=== PATIENT | male | born 1960 | race Caucasian/White ===

== ENCOUNTER → 2024-02-04 08:10 | Outpatient (REF) | payer OTHER, SELFPAY | LOC: MRI 3T 08:10 | PROVIDERS: ATTENDING PHYSICIAN Physician Assistant Surgical; FAMILY PHYSICIAN Family Medicine | DX: M25.562 Pain in left knee (principal) | CPT/HCPCS: 73721 ==

== ENCOUNTER 2024-10-27 10:16 | Inpatient (IN) | payer OTHER, SELFPAY ==
[2024-10-27] VITALS (9 sets, daily range): BP systolic 106–139; BP diastolic 59–83; BMI 27.8
--- NOTE | 2024-10-27 08:42 | ED.GENMED ---
History of Present Illness
General
Chief Complaint: Skin Problem
Source: patient
Time Seen by Provider: 10/27/24 08:11
History of Present Illness
History of Present Illness:
64-year-old male with past medical history of CAD, hypertension, hyperlipidemia, ubc-gzahzap-mfmdhmgyu diabetes managed with diet presenting to the emergency department for evaluation of left lower extremity pain, erythema and edema that he believes
started about 48 hours ago and has gotten gradually worse accompanied with chills, nausea, 1 episode nonbloody nonbilious emesis and a headache. Patient states that he is not sure as to how the redness and swelling started but states this does seem
similar to an episode of cellulitis that he had about 4 5 years ago which required treatment with IV antibiotics. Patient denies any trauma, focal weakness or numbness, documented fevers, abdominal pain, chest pain or shortness of breath. No
recent travel or known sick contacts.
Past History
Past History
ED Past Medical History: CAD, GERD, HTN, Hypercholesterolemia, NIDDM (Diet controlled) and Other (Cellulitis)
ED Past Surgical History: Cardiac (Cardiac catheterization 06/19/2019, no stents, CABG x 3 2018)
Social History
Tobacco: Non-smoker
Alcohol: Occasional
Drug: None
Personal: Other ()
Living: alone
Employment: Employed
Family History
Family History: CAD
Review of Systems
Review of Systems
All Other Systems: ROS reviewed and negative except as documented in HPI and ROS
Phy Exam
Physical Exam
Physical Exam:
GENERAL: Alert , in no apparent distress
HEAD: NCAT
EYE: conjunctiva clear
NECK: Supple, no significant adenopathy.
ENT: o/p clr, mmm.
CARDIAC: Tachycardic rate and rhythm
LUNGS: Clear breath sounds bilaterally, no acute respiratory distress, no wheezes/rales/rhonchi
NEUROLOGICAL: Alert and oriented
SKIN: Warm and dry, circumferential erythema extending from the distal ankle to the proximal tib-fib. Hot to the touch, tender to touch. Along the medial aspect of the mid tibia there is a deeper area of erythema compared to the rest of the lower
leg
MUSCULOSKELETAL: Easily palpable pedal and tibial pulses bilaterally. Sensation grossly intact to light touch. Cap refill less than 2 seconds. Patient allows for full range of motion of bilateral lower extremities without difficulty
PSYCH: Normal and appropriate interaction.
Scores
Heart Failure Risk
Heart Failure Risk Score: Not Applicable
Heart Score for Chest Pain Patients
STEMI patient?: Not applicable
Withdrawal Assessment of Alcohol
Withdrawal Assessment Completed?: Not applicable
Course
Orders/Labs/Results
Orders:
Orders
10/27/24 Breakfast
2200 calorie (18 carb) Diabetic
At Your Request: Full Participation
10/27/24 08:25
Ketorolac [Toradol] 30 mg IV NOW STA
Periph Venous Lwr Ext Left US [US Periph Venous LOWER Ext LT] Urgent
Comment:
Reason For Exam: pain, erythema, edema
10/27/24 08:35
Basic Metabolic Panel Urgent
CRP [C-Reactive Protein] Urgent
Complete Blood Count/With Diff Urgent
ESR [Erythrocyte Sed Rate] Urgent
Lactic Acid Q4H
Comment: CANCEL 2nd LACTIC ACID IF 1st LACTIC ACID IS LESS THAN 2
Blood Culture Q30M
JARROD Source: Blood/Venous
Specimen Description:
Blood Culture Q30M
JARROD Source: Blood/Venous
Specimen Description:
10/27/24 08:52
0.9% Sodium Chloride 1000 ml [Nss] 2,400 ml IV NOW STA
Acetaminophen [Tylenol] 1,000 mg PO NOW STA
Vancomycin [Vancocin] 2,000 mg 0.9% Sodium Chloride 500 ml [Nss] 500 ml IV NOW
10/27/24 09:56
Admit/Transfer Patient As Directed
Co-Sign Provider:
Level of Care: Inpatient admission
Assign to:: Medical/Surgical
Physician / Group: Hospitalist
Diagnosis: Sepsis
Reason for Hospitalization: .
Expected length of stay greater than two midnights?: Yes
ELOS- Estimated Length of Stay in days: 3
I certify the patient meets the requirements for IP care: Yes
PRN Pain Medication Management As Directed
May give lesser potent ordered pain med per pt: Yes
preference::
Protocol:: Medication orders for pain may be administered in a
manner that supports deferring to patient preference
when the pt is:
- Requesting an ordered lesser potent pain medication.
Least to most potent pain medications are defined
as: acetaminophen < NSAID < tramadol < opioids
(morphine, oxycodone, hydromorphone).
- Requesting a lesser dose of the same medication IF
ORDERED.
- Requesting a less intrusive route of administration
if both routes are prescribed by the provider (PO <
IV).
10/27/24 13:23
0.9% Sodium Chloride 1000 ml [Nss] 1,000 ml IV 125 mls/hr
Acetaminophen [Tylenol] 1,000 mg PO Q6HPRN PRN
Dextrose 50%-Water [Dextrose 50% Syringe] 12.5 grams IV [id number] PRN
Glucagon [GlucaGen] 1 mg IM PRN PRN
HydrALAZINE [Apresoline] 5 mg PO QIDPRN PRN
Insulin Aspart Corrective Mod [Novolog Flexpen-Moderate Resistance] See Protocol SC AC
Morphine Sulfate 4 mg IV Q4HPRN PRN
Ondansetron Injectable [Zofran] 4 mg IV Q6HPRN PRN
VANCOMYCIN Pharmacy to Dose [VANCOCIN Pharmacy to Dose] 1 each Pharmacy To Prepare [Call Pharmacy To Prepare] 0 ml IV PER PROTOCOL
10/27/24 13:23
Consult Infectious Disease [INFECTIOUS DISEASE CONSULT] Routine
Consulting Provider: Lisa Clark
Was physician already notified: Yes
Reason for consult: Sepsis/cellulitis
Bedside Glucose Monitoring As Directed
Frequency: AC&HS
Additional Instructions:: Change to q6h if pt on TPN, tube feeding or not eating
DX Deep Vein Thrombosis Video Routine
10/27/24 20:00
Carvedilol [Coreg] 6.25 mg PO BID
Heparin 5,000 units SC Q12
10/28/24 06:00
BMP [Basic Metabolic Panel] IN AM
CBC/No Diff [Complete Blood Count/No Diff] IN AM
Glycohemoglobin (HgbA1c) IN AM
10/28/24 08:00
Aspirin Low Dose EC [Aspir Low (Enteric Coated)] 81 mg PO DAILY
Atorvastatin [Lipitor] 80 mg PO DAILY
Abnormal Lab Results
10/27/24
08:35
WBC 16.7 H 10^3/uL
(4.8-10.8)
MCV 78.6 L fL
(80.0-94.0)
MCH 26.0 L pg
(27.0-31.0)
Abs Immat Gran (auto) 0.2 H 10^3/uL
(0-0.05)
Absolute Neuts (auto) 15.0 H 10^3/uL
(1.4-6.5)
Absolute Lymphs (auto) 0.9 L 10^3/uL
(1.2-3.4)
Immature Gran % 1.1 H %
(0-0.5)
Neutrophils % 90.2 H %
(42.2-75.2)
Lymphocytes % 5.2 L %
(20.5-51.1)
ESR 30 H mm/hour
(0-20)
Sodium 134 L mmol/L
(135-145)
Chloride 97 L mmol/L
(98-107)
BUN 24 H mg/dl
(9-20)
Creatinine 1.6 H mg/dL
(0.7-1.3)
Glucose 163 H mg/dl
(70-99)
C-Reactive Protein > 270.00 H mg/L
(0.0-10.00)
10/27/24 08:35
10/27/24 08:35
Vital Signs
Initial and Last Documented VS:
Initial Vital Signs
Temp Pulse Resp BP Pulse Ox
99.1 F 139 18 120/80 96
10/27/24 08:07 10/27/24 08:07 10/27/24 08:07 10/27/24 08:07 10/27/24 08:07
Last Documented Vital Signs
Temp Pulse Resp BP Pulse Ox
97.7 F 95 16 131/78 97
10/27/24 13:28 10/27/24 13:28 10/27/24 13:28 10/27/24 13:28 10/27/24 13:28
MDM/Problems Addressed
Differential Diagnosis Includes:
Cellulitis, abscess, Lyme rash considered however given circumferential nature as well as the edema I am less suspicious for this, cellulitis/bacteremia, osteomyelitis, necrotizing fasciitis, DVT
MDM/Problems Addressed:
64-year-old male presenting to the emergency department for evaluation of left lower extremity erythema, edema and pain x 48 hours. Patient reporting this feels similar to when he was diagnosed with cellulitis 4 to 5 years ago and required IV
antibiotics for treatment. Patient is afebrile here however does have a significant tachycardia. Noted chills and other systemic symptoms over the last 48 hours as well. Will check labs including blood cultures and lactic acid. Ultrasound
ordered to rule out DVT although I have low suspicion for this. Anticipate initiation of IV antibiotics and admission for further evaluation.
*Pulse Oximetry
Patient hypoxic: no
*Critical Care Note
Total Time (30-74mins, 75-104mins- exclusive of procedures): Not Applicable
Data Reviewed
Review of Other/Old Records Reveals: Records
Source: patient and records
Comment
Comment:
Temp rechecked and now 103.1. Sepsis fluids/abx initiated. tylenol ordered for pyrexia. Plan for admit.
Patient Management
Discussion with other providers: Hospitalist
Escalation/DeEscalation of care consider admission/obs:
Hospitalist team accepts for continued evaluation and treatment of suspected left lower extremity cellulitis
ED Attending Note
-
Portions of this chart may have been created with voice recognition software.� Occasional wrong word or��sound alike� substitutions may have occurred due to the inherent limitations of voice recognition software.
Discharge Plan
Departure
Patient Disposition: Admit
Date of Disposition: 10/27/24
Time of Disposition: 09:26
Presentation/result/management discussed w/ accepting MD/DO: Hospitalist
Discharge Problem:
Cellulitis of left leg, LARRY (acute kidney injury)
Interventions
Interventions:
*Risk Screen - Suicide Last Done: 10/27/24 08:07
*General Assessment Last Done: 10/27/24 08:07
*Neglect/Abuse Screening Last Done: 10/27/24 08:07
ED- Fall Risk Assessment Last Done: 10/27/24 09:08
*ED COVID-19 Vaccine History Last Done: 10/27/24 09:08
*Nursing Disposition Last Done: 10/27/24 13:24
ED-Skin Assessment Last Done: 10/27/24 09:10
Discharge Date and Time
Discharge Date/Time: 10/27/24 13:25
[2024-10-27] MEDS: NSS 2400 ML IV (08:56)
[2024-10-27] MEDS: TYLENOL 1000 MG PO ×2 (09:00→23:28)
[2024-10-27] MEDS: TORADOL 30 MG IV (09:01)
[2024-10-27 09:05] LABS: % Basophils 0.2 % (0-2); % Immature Granulocytes 1.1 % (0-0.5); % Lymphocytes 5.2 % (20.5-51.1); % Monocytes 3.3 % (1.7-9.3); % Neutrophils 90.2 % (42.2-75.2); Absolute Immature Granulocytes 0.2 10^3/uL (0-0.05); Absolute Lymphocytes 0.9 10^3/uL (1.2-3.4); Absolute Monocytes 0.6 10^3/uL (0.1-0.6); Hematocrit 40.5 % (39.0-52.0); Hemoglobin 13.4 g/dL (13.0-18.0); Mean Corp Hgb Conc. 33.1 g/dL (33.0-37.0); Mean Corpuscular Volume 78.6 fL (80.0-94.0); Mean Platelet Volume 9.3 fL (7.4-10.4); Nucleated Red Blood Cells % 0 % (-); Platelet Count 173 10^3/uL (130-400); Red Blood Cell Count 5.15 10^6/uL (4.70-6.10); Red Cell Dist. Width 13.6 % (11.5-14.5); White Blood Cell Count 16.7 10^3/uL (4.8-10.8)
[2024-10-27 09:18] LABS: Lactic Acid 1.3 mmol/L (0.7-2.0)
[2024-10-27 09:23] LABS: Blood Urea Nitrogen 24 mg/dl (9-20); Calcium 8.9 mg/dl (8.4-10.2); Carbon Dioxide 24 mmol/L (22-30); Chloride 97 mmol/L (98-107); Estimated Creatinine Clearance 44 ml/min; Glucose 163 mg/dl (70-99); Potassium 3.8 mmol/L (3.5-5.1); Sodium 134 mmol/L (135-145); eGFR 48.11
[2024-10-27 09:43] LABS: C-Reactive Protein > 270.00 mg/L (0.0-10.00)
--- NOTE | 2024-10-27 09:55 | HPS.HSE ---
Family Physician
-
Family Physician: Marcelino Jackson
Chief Complaint
-
Left lower extremity erythema with fever
History of Present Illness
64-year-old male came from home. He started to notice left lower extremity pain and erythema associated with fever in last 2 days. He took jvso-ryv-nmzenbs medication but did not help. He started to feel unwell and developed nausea with vomiting
x 1. He presented to the ER and was found to have left lower extremity cellulitis. He reported similar episode in the past. He denied left lower leg injury or trauma. 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 In the emergency
room, he had leukocytosis, kidney injury with fever. He was given Tylenol, intravenous Toradol and intravenous vancomycin.
Medical History
Past Medical History
Past Medical History: Reports Other (Coronary artery disease, hypertension, hyperlipidemia, diabetes, gout.)
Past Surgical History: Reports Other (No recent major surgery)
Social History
Tobacco: Non-smoker
Alcohol: Occasional
Drug: None
Personal:
Living: With Family
Employment: Retired
Family History
Family History: CAD
Allergies / Home Medications
Allergies reflects when Allergies were last updated in [facility].
Home Medications with original date entered in [facility]
Allergy/Medication List:
Allergies
Allergy/AdvReac Type Severity Reaction Status Date / Time
Penicillins Allergy swell up Verified 10/27/24 08:49
Home Medications
aspirin 81 mg tablet,delayed release 81 mg PO DAILY #1 tab 06/19/19
carvedilol 6.25 mg tablet 6.25 mg PO BID 08/09/19
ibuprofen 200 mg tablet 400 mg (2 x 200 mg) PO Q6HPRN PRN moderate pain 11/24/19
atorvastatin 40 mg tablet 80 mg PO DAILY 10/13/21
metformin 500 mg tablet,extended release 24 hr 500 mg PO QPM@1700 10/13/21
valsartan 1 tab PO DAILY 10/27/24
Review of Systems
-
History Source: Patient
A 12 point ROS was completed and negative except as noted: Yes
Constitutional: Reports Fever
EENT: Denies Sore Throat
Respiratory: Denies Cough or Trouble Breathing
Cardiac: Denies Chest Pain
Abdomen/GI: Reports Nausea and Vomiting; Denies Abdominal Pain
: Reports Difficulty Voiding; Denies Dysuria
Musculoskeletal: Reports Other (Left lower extremity pain, swelling and erythema)
Skin: Denies Itching
Neurological: Reports Headache
Endocrine: Denies Temp Intolerance
Hematologic/Lymphatic: Denies Bruising
Psych: Denies Panic Disorder
Physical Exam
Vital Signs
Vital Signs
Temp Pulse Resp BP Pulse Ox
103.1 F H 139 18 120/80 96
10/27/24 08:50 10/27/24 08:07 10/27/24 08:07 10/27/24 08:07 10/27/24 08:07
Physical Exam
General: No Apparent Distress and Comfortable
HEENT: Atraumatic and Other (Dry mucous member)
Respiratory: Clear
Cardiac: S1/S2
GI: Soft and Non Tender
Rectal: No Maroon Stools
Genito-urinary: No No costovertebral tender
Musculoskeletal: Other (Left lower extremity tenderness, erythema and mild swelling from knee to ankle area)
Skin: No Rash
Neuro: AO x 3 and Nonfocal/grossly intact
Psych: Calm and Intact Judgment/Insight
Laboratory Results
-
10/27/24 08:35
10/27/24 08:35
Laboratory Results
Lactic Acid 1.3 mmol/L (0.7-2.0) 10/27/24 08:35
Impression/Plan
-
64 years old male presented with left lower extremity cellulitis
#Cellulitis of left lower extremity with sepsis present on admission with tachycardia, leukocytosis, fever
Admit the patient to telemetry
Start the patient on intravenous vancomycin
Blood culture x 2
Doppler ultrasound, no DVT
Tylenol for fever, mild to moderate pain, avoid nonsteroidal anti-inflammatory medication due to kidney insufficiency
IV morphine for severe pain
Intravenous fluid for hydration
Consulted ID, appreciate input
# Sinus tachycardia, reactive due to fever and infection. Continue with carvedilol monitor on telemetry. Patient denied chest pain
# History of coronary artery disease. No chest pain. Continue with aspirin, statin, beta-arsenio. Hold valsartan due to kidney insufficiency
#History of primary hypertension, will continue with carvedilol. Hold losartan due to kidney insufficiency. Add as needed hydralazine. Monitor blood pressure
#Acute kidney injury. Likely secondary to infection and dehydration.
Patient expressed suprapubic discomfort on exam. Will check bladder scan and monitor for retention. Patient reported history of in the frequent difficulty in voiding in the past
Monitor renal function and avoid nephrotoxic including nonsteroidal anti-inflammatory drugs.
Check renal ultrasound.
# Hyponatremia, no confusion. Continue IV fluid and recheck.
# Type 2 diabetes. Hold metformin. Will do insulin sliding scale and Accu-Cheks.
# Hyperlipidemia, continue with atorvastatin
# DVT prophylaxis with subcu heparin
Total time spent to see the patient, examine the patient, review data and lab results, discuss treatment plan with patient and his son, ER doctor, nursing staff around 75 minutes
[2024-10-27] MEDS: VANCOCIN 540 MG IV (09:58)
[2024-10-27 10:22] LABS: Erythrocyte Sed Rate 30 mm/hour (0-20)
[2024-10-27] MEDS: NSS 1000 IV ×2 (13:52→23:26)
--- NOTE | 2024-10-27 13:57 | PHA.VAN.IN ---
Assessment
- Assessment
Renal Function: Appears elevated from baseline
Plan
- Plan
Initial / Loading Dose: 2000mg 10/27
Maintenance Regimen: prn by level
Monitoring: random 10/28 in am
Pharmacokinetics Vancomycin I
- -
Patient Age: 64
Patient Sex: Male
Vancomycin Day #: 1
Indication: Skin And Soft Tissue
Requesting Provider: Dr. Woodard
Pertinent Antimicrobial Allergies:
PCNs=swell up
Height / Weight:
Height 5 ft 7 in
Actual Weight 80.5 kg
IBW in k.1
- Vital Signs / Lab Results
Temp Pulse Resp BP Pulse Ox
97.7 F 95 16 131/78 97
10/27/24 13:28 10/27/24 13:28 10/27/24 13:28 10/27/24 13:28 10/27/24 13:28
Lab Results - Hematology
10/27/24
08:35
WBC 16.7 H
Lab Results - Chemistry
10/27/24
08:35
BUN 24 H
Creatinine 1.6 H
Estimated Creat Clear 44
10/27/24 10/27/24
08:35 12:30
Lactic Acid 1.3 Cancelled
--- NOTE | 2024-10-27 14:48 | CM ---
Reviewed the chart notes and spoke with the patient at the bedside. The patient resides with his spouse in a two story home with one step to enter. The patient reports no DME/VN/SNF in the patient. The patient confirmed his pharmacy of choice is
[facility] continues to be available to patient/family and is monitoring medical plan for needs at discharge.
Plan: Discharge to home when medically stable.
[2024-10-27 17:01] LABS: Glucose - Point of Care 99 mg/dl (70-99)
[2024-10-27] MEDS: COREG 6.25 MG PO (20:30)
[2024-10-27] MEDS: HEPARIN SC (20:36)
[2024-10-27 21:42] LABS: Glucose - Point of Care 157 mg/dl (70-99)
[2024-10-27] MEDS: ZOFRAN 4 MG IV (23:29)
[2024-10-28 05:57] VITALS: BMI 29.3
[2024-10-28 07:00] LABS: Vancomycin Random 8.9 ug/ml
[2024-10-28 07:04] LABS: Blood Urea Nitrogen 18 mg/dl (9-20); Calcium 7.9 mg/dl (8.4-10.2); Carbon Dioxide 21 mmol/L (22-30); Chloride 102 mmol/L (98-107); Estimated Creatinine Clearance 52 ml/min; Glucose 123 mg/dl (70-99); Potassium 3.8 mmol/L (3.5-5.1); Sodium 139 mmol/L (135-145); eGFR > 60.00
[2024-10-28] MEDS: NSS 1000 IV ×2 (07:28→17:31)
[2024-10-28 07:48] LABS: Glucose - Point of Care 119 mg/dl (70-99)
--- NOTE | 2024-10-28 08:10 | PHA.VAN.FU ---
Vancomycin Assessment / Plan
- Assessment
Renal Function: SCR Decreasing
WBC's are: Trending Down
- Assessment - Therapeutic Drug Monitoring
Random Level: 8.9 - drawn ~20H after 2g loading dose
- Dosing Plan
Dosing by Level: Re-dose today (Vanc 1250mg)
- Monitoring Plan
Random Level: 10/29 0600
- Follow Up
Pharmacy will continue to follow.
Vancomycin Follow UP
- -
Patient Age: 64
Patient Sex: Male
Vancomycin Day #: 2
Indication: Skin And Soft Tissue
Requesting Provider: Dr. Woodard
Pertinent Antimicrobial Allergies:
Penicillins - swell up
Height / Weight:
Height 5 ft 6 in
Actual Weight 82.372 kg
IBW in k.1
Pertinent Past Medical History: DM
- Vital Signs / Lab Results
Temp Pulse Resp BP Pulse Ox
99.6 F 104 18 139/75 96
10/27/24 23:32 10/27/24 23:32 10/27/24 23:32 10/27/24 23:32 10/27/24 23:32
Lab Results - Hematology
10/27/24 10/28/24
08:35 05:54
WBC 16.7 H 14.3 H
Lab Results - Chemistry
10/27/24 10/28/24
08:35 05:54
BUN 24 H 18
Creatinine 1.6 H 1.3
Estimated Creat Clear 44 52
10/27/24 10/27/24
08:35 12:30
Lactic Acid 1.3 Cancelled
Therapeutic Drug Monitoring
Random Vancomycin 8.9 ug/ml 10/28/24 05:54
[2024-10-28 08:18] VITALS: BP 125/62
[2024-10-28] MEDS: HEPARIN SC (08:54)
[2024-10-28] MEDS: COREG 6.25 MG PO ×2 (08:54→19:38)
[2024-10-28] MEDS: VANCOCIN 275 MG IV (08:54)
[2024-10-28] MEDS: LIPITOR 80 MG PO (08:54)
[2024-10-28] MEDS: ASPIR LOW (ENTERIC COATED) 81 MG PO (08:54)
--- NOTE | 2024-10-28 10:24 | CON.ID ---
Addendum entered and electronically signed by Kristi Mckenzie MD 10/28/24 15:23:
I personally performed a history and physical exam of the patient and discussed management with the resident. I reviewed the resident's note and agree with most of the documented findings and plan of care HPI/CC.
64M hx DM, hx LLE cellulitis presented with acute LLE erythema, edema, fever, chills. No trauma.
Exam LLE: + erythema from ankle to below knee, + warmth, margin well demarcated. 3+ edema
A/P:
# Acute nonpurulent cellulitis LLE.
# Sepsis with fever, leukocytosis
# 'PCN allergy' ruled out. hx facial swelling from eye gtt after cataracts surgery. None of the abx eye drops contain PCN.
-Blood cx's neg to date.
- DC Vancomycin.
-Start cefazolin IV.
-Elevate LE
-Trend wbc, temps.
Original Note:
Consultation
-
Date/Time Consultation Requested: 10/27/2024 13:23
Date/Time Consultation Performed: 10/28/2024 10:25
Requesting Provider: Troy Woodard MD
Performing Provider: Kristi Mckenzie MD
Reason for Consultation: Cellulitis
Chief Complaint / Past History
History of Present Illness
This is a 64-year-old male with past medical history of T2DM, hypertension, hyperlipidemia, prior history of gout who presents to ED 10/27/2024 complaining of left lower extremity pain and erythema ongoing for the past 3 Days. In addition,
patient complaining of fevers, chills, nausea, 1 episode of nonbloody nonbilious emesis and intermittent headaches. Patient reports he is unsure when the redness and swelling started, although he has had a total of four similar episodes over the
past 4 years, and was diagnosed with cellulitis eventually treated with IV antibiotic. The patient denies any trauma to the foot, denies any travel, denies chest pain, denies shortness of breath, denies abdominal pain. He denies any sick contacts.
On presentation to the ER patient was febrile with temperature 103.1, blood pressure 120/80, O2 sat 97% on room air. Laboratory showed WBC 16.7, creatinine 1.6, CRP greater than 270. Evaluation with a peripheral vascular ultrasound showed left
lower extremity edema especially in the calf region,which precludes visualization of the posterior tibial and peroneal veins. Although no evidence of thrombus involving the left lower extremity femoral�popliteal deep venous system. We are asked to
evaluate patient from an infectious disease standpoint.
Past History
Past Medical History: Other (Essential hypertension, hyperlipidemia, T2DM, recurrent cellulitis of lower leg, gout, arthritis of the left foot, posterior tibial tendinitis of the left leg, CAD s/p CABG)
Past Surgical History: Other (Cardiac catheterization 06/19/2019, no stents, CABG x 3 2018)
Allergy History:
Penicillins Allergy (Verified 10/27/24 08:49)
swell up
Medications Reviewed: Yes
Current Antibiotics:
Vancomycin
Social History
Tobacco: Non-Smoker
Alcohol: Occasional
Drug: None
Living: Alone
Employment: Employed
Family History
Family History: CAD
Review of Systems
Review of Systems
General: Negative Fever or Chills
HEENT: Negative Lymphadenopathy
Cardiovascular: Negative Chest Pain
Respiratory: Negative Dyspnea
Genital / Urological: Negative Dysuria
Vital Signs
Temp Pulse Resp BP Pulse Ox
98.4 F 88 17 125/62 95
10/28/24 08:18 10/28/24 08:18 10/28/24 08:18 10/28/24 08:54 10/28/24 08:18
Physical Exam
Physical Exam
Constitutional: No Acute Distress
Head: Normocephalic
Eyes: No Conjunctival Hemorrhage
Cardiovascular: S1/S2
Pulmonary: Clear; Negative Wheezes or Rales
Gastrointestinal: Soft, Non Tender, Non Distended and Normal Bowel Sounds
Genito-Urinary: Negative CVA Tenderness
Extremities: Edema (Left lower extremity edema,) and Other (Left lower extremity tenderness, presence of edema from approximately knee to lower ankle area)
Neurological: Awake, Alert, Oriented and AO x 3
Lab / Diagnostic Study Results
10/28/24 05:54
10/28/24 05:54
Abs Immat Gran (auto) 0.2 10^3/uL (0-0.05) H 10/27/24 08:35
Absolute Neuts (auto) 15.0 10^3/uL (1.4-6.5) H 10/27/24 08:35
Absolute Lymphs (auto) 0.9 10^3/uL (1.2-3.4) L 10/27/24 08:35
Absolute Monos (auto) 0.6 10^3/uL (0.1-0.6) 10/27/24 08:35
Absolute Basos (auto) 0.0 10^3/uL (0-0.2) 10/27/24 08:35
Immature Gran % 1.1 % (0-0.5) H 10/27/24 08:35
Neutrophils % 90.2 % (42.2-75.2) H 10/27/24 08:35
Lymphocytes % 5.2 % (20.5-51.1) L 10/27/24 08:35
Monocytes % 3.3 % (1.7-9.3) 10/27/24 08:35
Eosinophils % 0.0 % (0-6) 10/27/24 08:35
Basophils % 0.2 % (0-2) 10/27/24 08:35
ESR 30 mm/hour (0-20) H 10/27/24 08:35
Lactic Acid Cancelled 10/27/24 12:30
C-Reactive Protein > 270.00 mg/L (0.0-10.00) H 10/27/24 08:35
Microbiology Results
Micro:
10/28/24 08:50 MRSA Screen - Pending
Nose
10/27/24 08:35 Blood Culture - Preliminary
Blood/Venous No Growth in 24 hours- Final report to follow
10/27/24 08:35 Blood Culture - Preliminary
Blood/Venous No Growth in 24 hours- Final report to follow
10/27/2024 peripheral vascular ultrasound: Left lower extremity edema, especially in the calf region, which precludes visualization of the posterior tibial and peroneal veins. There is otherwise no evidence of thrombus involving the left lower
extremity femoral-popliteal deep venous system.
Assessment / Plan
Assessment/plan
#Left lower extremity cellulitis
#Sepsis present on admission
# LARRY
-Leukocytosis present on admission
-Doppler ultrasound with no evidence of DVT
-Initiated on IV vancomycin on presentation
-MRSA screen pending
-Blood cultures x 2 preliminary negative
-Will change ABX to IV Cefazolin 2g Q8.
-Elevate the leg, keren area of cellulitis to see response to abx.
-Monitor WBC, temps.
-Follow Clinically.
Conditions LICENSED PHYSICAL THERAPIST
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
Hypertension
Hyperlipidemia
History of recurrent cellulitis
T2DM
Gout
[2024-10-28 11:20] LABS: Glucose - Point of Care 121 mg/dl (70-99)
[2024-10-28 11:30] VITALS: BP 116/71
--- NOTE | 2024-10-28 13:42 | W.PN.HOSP.TC ---
Today's Communication/Plan
-
switch to iv cefazolin
add on crp, esr, mrsa
ivf
monitor cultures
Assessment / Plan
Assessment / Plan
Physical Exam
General: No Apparent Distress and Comfortable
HEENT: Atraumatic and Other (Dry mucous member)
Respiratory: Clear
Cardiac: S1/S2
GI: Soft and Non Tender
Rectal: No Maroon Stools
Genito-urinary: No No costovertebral tender
Musculoskeletal: Other (Left lower extremity tenderness, erythema and mild swelling from knee to ankle area)
Skin: No Rash
Neuro: AO x 3 and Nonfocal/grossly intact
Psych: Calm and Intact Judgment/Insight
64 years old male presented with left lower extremity cellulitis
#Cellulitis of left lower extremity
#Sepsis present on admission with tachycardia, leukocytosis, fever
-Switch IV Vanc to IV cefazolin
-F/u ESR, CRP
-Blood culture x 2
-Doppler ultrasound, no DVT
- Tylenol for fever, mild to moderate pain, avoid nonsteroidal anti-inflammatory medication due to kidney insufficiency
-IV morphine for severe pain
-Intravenous fluid for hydration
-Consulted ID, appreciate input
#Acute kidney injury.
-monitor with resuscitation
-improving
# Sinus tachycardia, reactive due to fever and infection.
-Continue with carvedilol monitor on telemetry. Patient denied chest pain
# History of coronary artery disease.
-No chest pain.
- Continue with aspirin, statin, beta-arsenio.
-Hold valsartan due to kidney insufficiency
#History of primary hypertension
-will continue with carvedilol.
-Hold losartan due to kidney insufficiency.
-Add as needed hydralazine.
# Hyponatremia
-resolved with Resuscitation
Continue IV fluid
# Type 2 diabetes.
Hold metformin.
Will do insulin sliding scale and Accu-Cheks.
# Hyperlipidemia, continue with atorvastatin
# DVT prophylaxis with subcu heparin
Anticipated Discharge: 24 - 48 hours
Subjective/Interval History
-
Date of Service: October 28, 2024
No acute events overnight, erythema present, mostly unchanged
Objective Data
-
Labs:
Laboratory Results
10/28/24
05:54
WBC 14.3 H
Hgb 13.1
Hct 39.3
Plt Count 165
Sodium 139
Potassium 3.8
Chloride 102
Carbon Dioxide 21 L
BUN 18
Creatinine 1.3
Glucose 123 H
Calcium 7.9 L
Vital Signs:
Vital Signs
Temp Pulse Resp BP Pulse Ox
99.0 F 90 18 116/71 97
10/28/24 11:30 10/28/24 11:30 10/28/24 11:30 10/28/24 11:30 10/28/24 11:30
I&O
10/27/24 10/28/24 10/29/24
06:59 06:59 06:59
Intake Total 720 / 720
Balance 720 / 720
Review of Systems
-
History Source: Patient
All other systems: Not reviewed unless documented
Data Reviewed
-
Ultrasound: Image personally visualized and interpreted
Labs: Labs Reviewed by me
[2024-10-28] MEDS: ANCEF 10 IV ×2 (14:05→23:20)
[2024-10-28 14:08] LABS: Glycohemoglobin (HgbA1c) 6.8 % (4.0-5.6)
[2024-10-28] MEDS: TYLENOL 1000 MG PO ×2 (14:12→23:21)
--- NOTE | 2024-10-28 14:41 | CM ---
Patient seen at bedside.
ID consulted
PLAN: home, no needs anticipated
[2024-10-28 15:21] VITALS: BP 110/57
[2024-10-28 16:21] LABS: Glucose - Point of Care 171 mg/dl (70-99)
[2024-10-28 18:50] VITALS: BP 121/72
[2024-10-28] MEDS: HEPARIN 5000 UNITS SC (19:40)
[2024-10-28 21:32] LABS: Glucose - Point of Care 142 mg/dl (70-99)
[2024-10-28] MEDS: MELATONIN 5 MG PO (23:22)
[2024-10-28 23:33] VITALS: BP 115/65
[2024-10-29 03:12] VITALS: BP 117/67
[2024-10-29] MEDS: NSS 1000 IV ×2 (05:50→15:20)
[2024-10-29] MEDS: ANCEF 10 IV ×3 (05:51→21:23)
[2024-10-29 06:00] VITALS: BMI 29.7
[2024-10-29 07:39] LABS: Glucose - Point of Care 129 mg/dl (70-99)
[2024-10-29 07:45] VITALS: BP 125/62
[2024-10-29] MEDS: ASPIR LOW (ENTERIC COATED) 81 MG PO (08:09)
[2024-10-29] MEDS: HEPARIN SC ×2 (08:09→20:37)
[2024-10-29] MEDS: LIPITOR 80 MG PO (08:09)
[2024-10-29] MEDS: COREG 6.25 MG PO ×2 (08:09→20:37)
[2024-10-29 08:42] LABS: Hematocrit 35.3 % (39.0-52.0); Hemoglobin 11.6 g/dL (13.0-18.0); Mean Corp Hgb Conc. 32.9 g/dL (33.0-37.0); Mean Corpuscular Hgb 26.9 pg (27.0-31.0); Mean Corpuscular Volume 81.7 fL (80.0-94.0); Mean Platelet Volume 10.7 fL (7.4-10.4); Platelet Count 168 10^3/uL (130-400); Red Blood Cell Count 4.32 10^6/uL (4.70-6.10); Red Cell Dist. Width 14.5 % (11.5-14.5)
[2024-10-29 08:43] LABS: ALT (SGPT) 19 U/L (0-50); AST (SGOT) 22 U/L (17-59); Alkaline Phosphatase 90 U/L (38-126); Blood Urea Nitrogen 10 mg/dl (9-20); Carbon Dioxide 22 mmol/L (22-30); Chloride 105 mmol/L (98-107); Estimated Creatinine Clearance 70 ml/min; Glucose 116 mg/dl (70-99); Potassium 3.7 mmol/L (3.5-5.1); Sodium 139 mmol/L (135-145); Total Bilirubin 0.7 mg/dl (0.2-1.3); Total Protein 5.5 g/dl (6.3-8.2); eGFR > 60.00
--- NOTE | 2024-10-29 09:48 | W.PN.ID1 ---
Date of Service
Date of Service: October 29, 2024
Today's Communication
- Continue cefazolin IV (d2)
- Add short course clindamycin 900mg IV q8 x 3 d as toxin inhibitor.
Assessment / Plan
# Acute nonpurulent cellulitis LLE, worse today
# Sepsis with fever, leukocytosis - improving
# 'PCN allergy' ruled out. hx facial swelling from eye gtt after cataracts surgery. None of the abx eye drops contain PCN.
-Blood cx's neg to date.
- Continue cefazolin IV (d2)
- Add short course clindamycin 900mg IV q8 x 3 d as toxin inhibitor.
-JEFFREY-Wrap LLE.
-Elevate LLE
-Trend wbc, temps.
-Follow clinically.
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
Hypertension
Hyperlipidemia
History of rLLE ecurrent cellulitis
T2DM
Gout
Chief Complaint
-: Clinical Sepsis and Cellulitis
Subjective / Review of Systems
leg still hurts
Vital Signs / Physical Exam
Vital Signs
Vital Signs
Temp Pulse Resp BP Pulse Ox
98.9 F 88 16 125/62 98
10/29/24 07:45 10/29/24 08:09 10/29/24 07:45 10/29/24 08:09 10/29/24 07:45
Physical Exam
Constitutional: No Acute Distress
Pulmonary: Clear
Gastrointestinal: Soft, Non Tender and Non Distended
Extremities: Edema (LLE: 3+ edema) and Erythema (LLE increased erythema from ankle to below knee without extending past marked line, + warmth)
Neurological: AO x 3
Objective Data
Lab Data
Lab Results
10/29/24 06:20
10/29/24 06:20
ESR Cancelled 10/28/24 05:54
Estimated Creat Clear 70 ml/min 10/29/24 06:20
Lactic Acid Cancelled 10/27/24 12:30
Total Bilirubin 0.7 mg/dl (0.2-1.3) 10/29/24 06:20
AST 22 U/L (17-59) 10/29/24 06:20
ALT 19 U/L (0-50) 10/29/24 06:20
Alkaline Phosphatase 90 U/L (38-126) 10/29/24 06:20
C-Reactive Protein 261.70 mg/L (0.0-10.00) H 10/28/24 05:54
Most recent labs reviewed.
Micro Results:
10/27/24 08:35 Blood Culture - Preliminary
Blood/Venous No Growth in 48 hours- Final report to follow
10/27/24 08:35 Blood Culture - Preliminary
Blood/Venous No Growth in 48 hours- Final report to follow
10/28/24 08:50 MRSA Screen - Pending
Nose
10/27/2024 peripheral vascular ultrasound: Left lower extremity edema, especially in the calf region, which precludes visualization of the posterior tibial and peroneal veins. There is otherwise no evidence of thrombus involving the left lower
extremity femoral-popliteal deep venous system.
[2024-10-29] MEDS: TYLENOL 1000 MG PO (10:08)
--- NOTE | 2024-10-29 10:25 | CM ---
Reviewed the chart notes and spoke with the patient at the bedside. IV abx and steven wrap to lle continues. CM continues to be available to patient/family and is monitoring medical plan for needs at discharge.
Plan: Discharge to home when medically stable. No anticipated needs being identified at this time.
--- NOTE | 2024-10-29 10:47 | PTCARENOTE ---
[employer] login not working on any computers right now, this RN called pharmacy to verify compatibility between clindamycin infusion and NSS IVF. Pharmacy aware of [facility] being down.
[2024-10-29 11:20] VITALS: BP 108/62
[2024-10-29] MEDS: VISBIOME 2 CAP PO (11:50)
[2024-10-29] MEDS: CLEOCIN 50 IV ×2 (11:51→17:01)
[2024-10-29 12:23] LABS: Glucose - Point of Care 151 mg/dl (70-99)
--- NOTE | 2024-10-29 13:00 | PTCARENOTE ---
Pts accucheck is 151 this afternoon, pt refusing insulin dose.
--- NOTE | 2024-10-29 13:06 | W.PN.HOSP.TC ---
Today's Communication/Plan
-
cont cefazolin
start Daptomycin
monitor clinically, wbc - F/u ID recs
Assessment / Plan
Assessment / Plan
Physical Exam
General: No Apparent Distress and Comfortable
HEENT: Atraumatic and Other (Dry mucous member)
Respiratory: Clear
Cardiac: S1/S2
GI: Soft and Non Tender
Rectal: No Maroon Stools
Genito-urinary: No No costovertebral tender
Musculoskeletal: Other (Left lower extremity tenderness, erythema and mild swelling from knee to ankle area) worse today
Skin: No Rash
Neuro: AO x 3 and Nonfocal/grossly intact
Psych: Calm and Intact Judgment/Insight
64 years old male presented with left lower extremity cellulitis
#Cellulitis of left lower extremity
#Sepsis present on admission with tachycardia, leukocytosis, fever
-Switch IV Vanc to IV cefazolin (day 2)
-Add short course of clindamycin 900 mg IV every 8 for 3 days
� Mp wrap, elevate extremities
-Blood culture x 2
-Doppler ultrasound, no DVT
- Tylenol for fever, mild to moderate pain, avoid nonsteroidal anti-inflammatory medication due to kidney insufficiency
-IV morphine for severe pain
-Intravenous fluid for hydration
-Consulted ID, appreciate input
#Acute kidney injury.
-monitor with resuscitation
-improving
# Sinus tachycardia, reactive due to fever and infection.
-Continue with carvedilol monitor on telemetry. Patient denied chest pain
# History of coronary artery disease.
-No chest pain.
- Continue with aspirin, statin, beta-arsenio.
-Hold valsartan due to kidney insufficiency
#History of primary hypertension
-will continue with carvedilol.
-Hold losartan due to kidney insufficiency.
-Add as needed hydralazine.
# Hyponatremia
-resolved with Resuscitation
Continue IV fluid
# Type 2 diabetes.
Hold metformin.
Will do insulin sliding scale and Accu-Cheks.
# Hyperlipidemia, continue with atorvastatin
# DVT prophylaxis with subcu heparin
Anticipated Discharge: > 48 hours
Subjective/Interval History
-
Date of Service: October 29, 2024
Lower extremity worse today
Objective Data
-
Labs:
Laboratory Results
10/29/24
06:20
WBC 14.0 H
Hgb 11.6 L
Hct 35.3 L
Plt Count 168
Sodium 139
Potassium 3.7
Chloride 105
Carbon Dioxide 22
BUN 10
Creatinine 1.1
Glucose 116 H
Calcium 8.0 L
Total Bilirubin 0.7
AST 22
ALT 19
Alkaline Phosphatase 90
Vital Signs:
Vital Signs
Temp Pulse Resp BP Pulse Ox
100.0 F 92 14 108/62 91
10/29/24 11:20 10/29/24 11:20 10/29/24 11:20 10/29/24 11:20 10/29/24 11:20
I&O
10/28/24 10/29/24 10/30/24
06:59 06:59 06:59
Intake Total 720 / 720 3375 / 3375
Balance 720 / 720 3375 / 3375
Review of Systems
-
History Source: Patient
All other systems: Not reviewed unless documented
Data Reviewed
-
Ultrasound: Image personally visualized and interpreted
Labs: Labs Reviewed by me
[2024-10-29 15:30] VITALS: BP 131/78
[2024-10-29 16:26] LABS: Glucose - Point of Care 123 mg/dl (70-99)
[2024-10-29 19:00] VITALS: BP 134/72
[2024-10-29 21:28] LABS: Glucose - Point of Care 158 mg/dl (70-99)
[2024-10-29 23:00] VITALS: BP 130/69
[2024-10-30] MEDS: CLEOCIN 50 IV ×3 (01:27→17:10)
[2024-10-30 03:00] VITALS: BP 124/55
[2024-10-30] MEDS: NSS 1000 IV (05:47)
[2024-10-30] MEDS: ANCEF 10 IV ×3 (05:47→21:15)
[2024-10-30 07:15] LABS: Hematocrit 32.4 % (39.0-52.0); Hemoglobin 10.8 g/dL (13.0-18.0); Mean Corp Hgb Conc. 33.3 g/dL (33.0-37.0); Mean Corpuscular Hgb 26.4 pg (27.0-31.0); Mean Corpuscular Volume 79.2 fL (80.0-94.0); Mean Platelet Volume 10.2 fL (7.4-10.4); Platelet Count 171 10^3/uL (130-400); Red Blood Cell Count 4.09 10^6/uL (4.70-6.10); Red Cell Dist. Width 14.5 % (11.5-14.5); White Blood Cell Count 15.3 10^3/uL (4.8-10.8)
[2024-10-30 07:39] LABS: ALT (SGPT) 15 U/L (0-50); AST (SGOT) 24 U/L (17-59); Albumin 2.9 g/dl (3.5-5.0); Alkaline Phosphatase 139 U/L (38-126); Blood Urea Nitrogen 9 mg/dl (9-20); Calcium 7.7 mg/dl (8.4-10.2); Carbon Dioxide 24 mmol/L (22-30); Chloride 103 mmol/L (98-107); Estimated Creatinine Clearance 70 ml/min; Glucose 123 mg/dl (70-99); Potassium 3.3 mmol/L (3.5-5.1); Sodium 138 mmol/L (135-145); Total Bilirubin 0.9 mg/dl (0.2-1.3); Total Protein 5.6 g/dl (6.3-8.2); eGFR > 60.00
[2024-10-30 08:08] VITALS: BP 142/78
[2024-10-30] MEDS: VISBIOME PO ×2 (08:17→08:22)
[2024-10-30] MEDS: ASPIR LOW (ENTERIC COATED) 81 MG PO (08:17)
[2024-10-30] MEDS: COREG 6.25 MG PO ×2 (08:18→19:41)
[2024-10-30] MEDS: HEPARIN SC ×2 (08:18→19:37)
[2024-10-30] MEDS: LIPITOR 80 MG PO (08:18)
[2024-10-30 08:23] LABS: Glucose - Point of Care 139 mg/dl (70-99)
[2024-10-30] MEDS: KCL ELIXIR 40 MEQ PO (09:51)
--- NOTE | 2024-10-30 10:34 | PTCARENOTE ---
Pt refusing to wear telemetry box despite attempts from both RN and PCT to provide education. made aware.
[2024-10-30 11:30] LABS: Glucose - Point of Care 162 mg/dl (70-99)
--- NOTE | 2024-10-30 11:34 | PTCARENOTE ---
Pts accucheck is 162 this afternoon, pt refusing insulin dose.
--- NOTE | 2024-10-30 11:40 | CM ---
Reviewed the chart notes. Continues with IV abx. CM continues to be available to patient/family and is monitoring medical plan for needs at discharge.
Plan: Discharge to home when medically stable. No needs anticipated at this time.
--- NOTE | 2024-10-30 13:25 | W.PN.ID1 ---
Addendum entered and electronically signed by Kristi Mckenzie MD 10/30/24 15:59:
I saw and evaluated the patient. I reviewed the resident�s note and agree with findings and plan as documented in the resident�s note.
S: leg less pain. No diarrhea
O: Exam: LLE stable to slight improved.
WBC 15
A: Left lower extremity nonpurulent cellulitis
P: Continue cefazolin and short course clinda
Follow wbc.
Original Note:
Date of Service
Date of Service: October 30, 2024
Today's Communication
.
Assessment / Plan
Assessment/plan
#Left lower extremity nonpurulent cellulitis
#Sepsis present on admission-now improving
# 'PCN allergy' ruled out. History of facial swelling from eye gtt after cataract surgery. None of antibiotics eyedrops containing penicillin
-Blood cultures negative to date
-Continue cefazolin IV (day 3)
-Short course clindamycin 900 mg IV q8 x 3 as toxin inhibitor
-Mp wrap
-Elevate leg
-Trend WBC, temperature
-Follow clinically
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
Hypertension
Hyperlipidemia
History of recurrent cellulitis
T2DM
Gout
Chief Complaint
-: Clinical Sepsis and Cellulitis
Subjective / Review of Systems
Review of Systems: No Fever and No Chills
Vital Signs / Physical Exam
Vital Signs
Vital Signs
Temp Pulse Resp BP Pulse Ox
98.9 F 94 16 142/78 92
10/30/24 08:08 10/30/24 08:18 10/30/24 08:08 10/30/24 08:18 10/30/24 09:25
Physical Exam
Constitutional: No Acute Distress
Cardiovascular: S1/S2
Pulmonary: Clear
Gastrointestinal: Soft, Non Tender and Non Distended
Extremities: Other (Left lower extremity erythematous from approximately knee to lower ankle area.)
Neurological: AO x 3
Objective Data
Lab Data
Lab Results
10/30/24 06:32
10/30/24 06:32
ESR Cancelled 10/28/24 05:54
Estimated Creat Clear 70 ml/min 10/30/24 06:32
Lactic Acid Cancelled 10/27/24 12:30
Total Bilirubin 0.9 mg/dl (0.2-1.3) 10/30/24 06:32
AST 24 U/L (17-59) 10/30/24 06:32
ALT 15 U/L (0-50) 10/30/24 06:32
Alkaline Phosphatase 139 U/L (38-126) H 10/30/24 06:32
C-Reactive Protein 261.70 mg/L (0.0-10.00) H 10/28/24 05:54
Most recent labs reviewed.
Micro Results:
10/27/24 08:35 Blood Culture - Preliminary
Blood/Venous No Growth in 72 hours- Final report to follow
10/27/24 08:35 Blood Culture - Preliminary
Blood/Venous No Growth in 72 hours- Final report to follow
10/28/24 08:50 MRSA Screen - Final
Nose No Methicillin Resistant Staphylococcus aureus isolated.
10/27/2024 peripheral vascular ultrasound: Left lower extremity edema, especially in the calf region, which precludes visualization of the posterior tibial and peroneal veins. There is otherwise no evidence of thrombus involving the left lower
extremity femoral-popliteal deep venous system.
--- NOTE | 2024-10-30 14:16 | W.PN.HOSP.TC ---
Today's Communication/Plan
-
resume ACEI
cont abx
Assessment / Plan
Assessment / Plan
Physical Exam
General: No Apparent Distress and Comfortable
HEENT: Atraumatic and Other (Dry mucous member)
Respiratory: Clear
Cardiac: S1/S2
GI: Soft and Non Tender
Rectal: No Maroon Stools
Genito-urinary: No No costovertebral tender
Musculoskeletal: Other (Left lower extremity tenderness, erythema and mild swelling from knee to ankle area) slightly improved
Skin: No Rash
Neuro: AO x 3 and Nonfocal/grossly intact
Psych: Calm and Intact Judgment/Insight
64 years old male presented with left lower extremity cellulitis
#Cellulitis of left lower extremity
#Sepsis present on admission with tachycardia, leukocytosis, fever
-Switch IV Vanc to IV cefazolin (day 3)
-Add short course of clindamycin 900 mg IV every 8 for 3 days
� Mp wrap, elevate extremities
-Blood culture x 2
-Doppler ultrasound, no DVT
- Tylenol for fever, mild to moderate pain, avoid nonsteroidal anti-inflammatory medication due to kidney insufficiency
-IV morphine for severe pain
-Intravenous fluid for hydration
-Consulted ID, appreciate input
#Acute kidney injury.
-monitor with resuscitation
-improving
# Sinus tachycardia, reactive due to fever and infection.
-Continue with carvedilol monitor on telemetry. Patient denied chest pain
# History of coronary artery disease.
-No chest pain.
- Continue with aspirin, statin, beta-arsenio.
-Hold valsartan due to kidney insufficiency
#History of primary hypertension
-will continue with carvedilol.
-resume ACEI
-Add as needed hydralazine.
#Hypokalemia
-monitor and replete
# Hyponatremia
-resolved with Resuscitation
Continue IV fluid
# Type 2 diabetes.
Hold metformin.
Will do insulin sliding scale and Accu-Cheks.
# Hyperlipidemia, continue with atorvastatin
# DVT prophylaxis with subcu heparin
Anticipated Discharge: 24 - 48 hours
Subjective/Interval History
-
Date of Service: October 30, 2024
no acute events, erythema appears to have slightly improved
Objective Data
-
Labs:
Laboratory Results
10/30/24
06:32
WBC 15.3 H
Hgb 10.8 L
Hct 32.4 L
Plt Count 171
Sodium 138
Potassium 3.3 L
Chloride 103
Carbon Dioxide 24
BUN 9
Creatinine 1.1
Glucose 123 H
Calcium 7.7 L
Total Bilirubin 0.9
AST 24
ALT 15
Alkaline Phosphatase 139 H
Vital Signs:
Vital Signs
Temp Pulse Resp BP Pulse Ox
98.9 F 94 16 142/78 92
10/30/24 08:08 10/30/24 08:18 10/30/24 08:08 10/30/24 08:18 10/30/24 09:25
I&O
10/29/24 10/30/24 10/31/24
06:59 06:59 06:59
Intake Total 3375 / 3375 2517 / 2517
Balance 3375 / 3375 2517 / 2517
Review of Systems
-
History Source: Patient
All other systems: Not reviewed unless documented
Data Reviewed
-
Ultrasound: Image personally visualized and interpreted
Labs: Labs Reviewed by me
[2024-10-30 15:22] VITALS: BP 149/84
[2024-10-30 16:03] LABS: Glucose - Point of Care 112 mg/dl (70-99)
[2024-10-30] MEDS: DIOVAN 160 MG PO (16:05)
[2024-10-30] MEDS: TYLENOL 1000 MG PO (19:37)
[2024-10-30 19:51] VITALS: BP 142/71
[2024-10-30 21:19] LABS: Glucose - Point of Care 163 mg/dl (70-99)
[2024-10-30 23:18] VITALS: BP 117/63
[2024-10-31] MEDS: CLEOCIN 50 IV ×3 (01:34→17:37)
[2024-10-31] MEDS: ANCEF 10 IV ×3 (05:13→21:01)
[2024-10-31 06:48] LABS: Hematocrit 34.8 % (39.0-52.0); Hemoglobin 11.7 g/dL (13.0-18.0); Mean Corp Hgb Conc. 33.6 g/dL (33.0-37.0); Mean Corpuscular Hgb 26.8 pg (27.0-31.0); Mean Corpuscular Volume 79.8 fL (80.0-94.0); Platelet Count 236 10^3/uL (130-400); Red Blood Cell Count 4.36 10^6/uL (4.70-6.10); Red Cell Dist. Width 14.5 % (11.5-14.5); White Blood Cell Count 14.6 10^3/uL (4.8-10.8)
[2024-10-31 07:00] VITALS: BP 156/83
[2024-10-31 07:08] LABS: ALT (SGPT) 30 U/L (0-50); AST (SGOT) 67 U/L (17-59); Albumin 3.6 g/dl (3.5-5.0); Alkaline Phosphatase 249 U/L (38-126); Blood Urea Nitrogen 11 mg/dl (9-20); Calcium 8.1 mg/dl (8.4-10.2); Carbon Dioxide 25 mmol/L (22-30); Chloride 98 mmol/L (98-107); Estimated Creatinine Clearance 64 ml/min; Glucose 131 mg/dl (70-99); Potassium 3.2 mmol/L (3.5-5.1); Sodium 139 mmol/L (135-145); Total Bilirubin 1.6 mg/dl (0.2-1.3); Total Protein 6.4 g/dl (6.3-8.2); eGFR > 60.00
[2024-10-31 07:35] LABS: Glucose - Point of Care 144 mg/dl (70-99)
[2024-10-31] MEDS: HEPARIN SC ×2 (08:35→20:47)
[2024-10-31] MEDS: COREG 6.25 MG PO ×2 (08:35→20:56)
[2024-10-31] MEDS: LIPITOR 80 MG PO (08:35)
[2024-10-31] MEDS: ASPIR LOW (ENTERIC COATED) 81 MG PO (08:35)
[2024-10-31] MEDS: DIOVAN 160 MG PO (08:35)
[2024-10-31] MEDS: VISBIOME PO (08:38)
[2024-10-31] MEDS: KCL ELIXIR 40 MEQ PO (09:17)
--- NOTE | 2024-10-31 09:41 | W.PN.ID1 ---
Addendum entered and electronically signed by Kristi Mckenzie MD 10/31/24 12:32:
I saw and evaluated the patient. I reviewed the resident�s note and agree with findings and plan as documented in the resident�s note.
S: Able to ambulate. Leg feels 'heavy' when he walks.
O: Exam: LLE decreased erythema/edema. + dry scales on 2nd, 3rd, 4th toe webs
WBC 14.6
A: Left lower extremity nonpurulent cellulitis - improving
Left foot tinea pedis.
P: Continue cefazolin
Completing 3 days of clindamycin (toxin inhibitor)
Continue MP-Wrap. Can remove at night.
Apply topical antifungal cream to fungus in toe webs.
Follow wbc.
Original Note:
Date of Service
Date of Service: October 31, 2024
Today's Communication
.
Assessment / Plan
Assessment/plan
#Left lower extremity nonpurulent cellulitis
#Sepsis present on admission-now improving
# 'PCN allergy' ruled out. History of facial swelling from eye gtt after cataract surgery. None of antibiotics eyedrops containing penicillin
#Tinea Pedis
-Blood cultures negative to date
-Continue cefazolin IV (day 4)
-Short course clindamycin 900 mg IV q8 till 11/01 as toxin inhibitor
-Mp wrap. Can remove wrap at night.
-Elevate leg
-Trend WBC, temperature
-Follow clinically
-Topical Miconazole application in-between toes.
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
Hypertension
Hyperlipidemia
History of recurrent cellulitis
T2DM
Gout
Chief Complaint
-: Clinical Sepsis and Cellulitis
Vital Signs / Physical Exam
Vital Signs
Vital Signs
Temp Pulse Resp BP Pulse Ox
98.1 F 97 17 156/83 96
10/31/24 07:00 10/31/24 07:00 10/31/24 07:00 10/31/24 08:35 10/31/24 07:00
Physical Exam
Constitutional: No Acute Distress
Cardiovascular: Regular Rate and S1/S2
Pulmonary: Clear
Gastrointestinal: Soft, Non Tender and Non Distended
Extremities: Other (Left lower extremity erythematous from approximately knee to lower ankle area, greatly improved. )
Neurological: AO x 3
Objective Data
Lab Data
Lab Results
10/31/24 05:36
10/31/24 05:36
ESR Cancelled 10/28/24 05:54
Estimated Creat Clear 64 ml/min 10/31/24 05:36
Lactic Acid Cancelled 10/27/24 12:30
Total Bilirubin 1.6 mg/dl (0.2-1.3) H 10/31/24 05:36
AST 67 U/L (17-59) H 10/31/24 05:36
ALT 30 U/L (0-50) 10/31/24 05:36
Alkaline Phosphatase 249 U/L (38-126) H 10/31/24 05:36
C-Reactive Protein 261.70 mg/L (0.0-10.00) H 10/28/24 05:54
Most recent labs reviewed.
Micro Results:
10/27/24 08:35 Blood Culture - Preliminary
Blood/Venous No Growth in 4 days- Final report to follow
10/27/24 08:35 Blood Culture - Preliminary
Blood/Venous No Growth in 4 days- Final report to follow
10/28/24 08:50 MRSA Screen - Final
Nose No Methicillin Resistant Staphylococcus aureus isolated.
10/27/2024 peripheral vascular ultrasound: Left lower extremity edema, especially in the calf region, which precludes visualization of the posterior tibial and peroneal veins. There is otherwise no evidence of thrombus involving the left lower
extremity femoral-popliteal deep venous system.
--- NOTE | 2024-10-31 09:57 | PTCARENOTE ---
LLE assessed by this nurse. this nurse had pt initially on sunday 10/28. swelling monday +3 with localized erythema. steven wrap removed this morning and leg still red towards ankle but localized erythema decreased as well as swelling. edema +2 in
comparison
[2024-10-31] MEDS: KCL ELIXIR PO (11:06)
--- NOTE | 2024-10-31 11:37 | CM ---
Reviewed the chart notes. Continues with IV abx until 11/01/24 per notes. CM continues to be available to patient/family and is monitoring medical plan for needs at discharge.
Plan: Discharge to home when medically stable. No needs anticipated at this time.
[2024-10-31 11:44] LABS: Glucose - Point of Care 174 mg/dl (70-99)
--- NOTE | 2024-10-31 14:05 | W.PN.HOSP.TC ---
Today's Communication/Plan
-
cont abx
RUQ Sono
Assessment / Plan
Assessment / Plan
Physical Exam
General: No Apparent Distress and Comfortable
HEENT: Atraumatic and Other (Dry mucous member)
Respiratory: Clear
Cardiac: S1/S2
GI: Soft and Non Tender
Rectal: No Maroon Stools
Genito-urinary: No No costovertebral tender
Musculoskeletal: Other (Left lower extremity tenderness, erythema and mild swelling from knee to ankle area) slightly improved
Skin: No Rash
Neuro: AO x 3 and Nonfocal/grossly intact
Psych: Calm and Intact Judgment/Insight
64 years old male presented with left lower extremity cellulitis
#Cellulitis of left lower extremity
#Sepsis present on admission with tachycardia, leukocytosis, fever
-Switch IV Vanc to IV cefazolin (day 3)
-Add short course of clindamycin 900 mg IV every 8 for 3 days (D3)
� Mp wrap, elevate extremities
-Blood culture x 2
-Doppler ultrasound, no DVT
- Tylenol for fever, mild to moderate pain, avoid nonsteroidal anti-inflammatory medication due to kidney insufficiency
-IV morphine for severe pain
-Intravenous fluid for hydration
-Consulted ID, appreciate input
#Transaminitis
#Hyperbilirubinemia
� I suspect secondary to antibiotics, DILI
� Follow-up right upper quadrant sono
� No tenderness upon palpation of right upper quadrant
#Acute kidney injury.
-monitor with resuscitation
-improving
# Sinus tachycardia, reactive due to fever and infection.
-Continue with carvedilol monitor on telemetry. Patient denied chest pain
# History of coronary artery disease.
-No chest pain.
- Continue with aspirin, statin, beta-arsenio.
-Hold valsartan due to kidney insufficiency
#History of primary hypertension
-will continue with carvedilol.
-resume ARB
-Add as needed hydralazine.
#Hypokalemia
-monitor and replete
# Hyponatremia
-resolved with Resuscitation
Continue IV fluid
# Type 2 diabetes.
Hold metformin.
Will do insulin sliding scale and Accu-Cheks.
# Hyperlipidemia, continue with atorvastatin
# DVT prophylaxis with subcu heparin
Anticipated Discharge: Today
Subjective/Interval History
-
Date of Service: October 31, 2024
improvement in erythema, lfts elevated
Objective Data
-
Labs:
Laboratory Results
10/31/24
05:36
WBC 14.6 H
Hgb 11.7 L
Hct 34.8 L
Plt Count 236 D
Sodium 139
Potassium 3.2 L
Chloride 98
Carbon Dioxide 25
BUN 11
Creatinine 1.2
Glucose 131 H
Calcium 8.1 L
Total Bilirubin 1.6 H
AST 67 H
ALT 30
Alkaline Phosphatase 249 H
Vital Signs:
Vital Signs
Temp Pulse Resp BP Pulse Ox
98.1 F 97 17 156/83 96
10/31/24 07:00 10/31/24 07:00 10/31/24 07:00 10/31/24 08:35 10/31/24 09:07
I&O
10/30/24 10/31/24 11/01/24
06:59 06:59 06:59
Intake Total 2517 / 2517 495 / 495
Balance 2517 / 2517 495 / 495
Review of Systems
-
History Source: Patient
All other systems: Not reviewed unless documented
Data Reviewed
-
Ultrasound: Image personally visualized and interpreted
Labs: Labs Reviewed by me
[2024-10-31] MEDS: ANTIFUNGAL CLEAR 1 APPLIC TOPICAL ×2 (14:13→20:57)
[2024-10-31 15:54] VITALS: BP 159/93
[2024-10-31 16:40] LABS: Glucose - Point of Care 122 mg/dl (70-99)
[2024-10-31 20:54] VITALS: BP 159/86
[2024-10-31] MEDS: TYLENOL 1000 MG PO (20:59)
[2024-10-31 21:12] LABS: Glucose - Point of Care 135 mg/dl (70-99)
[2024-10-31 23:13] VITALS: BP 136/70
[2024-11-01] MEDS: CLEOCIN 50 IV (01:18)
[2024-11-01] MEDS: ANCEF 10 IV (05:48)
[2024-11-01 06:30] LABS: Hematocrit 33.8 % (39.0-52.0); Mean Corp Hgb Conc. 32.5 g/dL (33.0-37.0); Mean Corpuscular Hgb 25.9 pg (27.0-31.0); Mean Corpuscular Volume 79.7 fL (80.0-94.0); Mean Platelet Volume 9.3 fL (7.4-10.4); Platelet Count 266 10^3/uL (130-400); Red Blood Cell Count 4.24 10^6/uL (4.70-6.10); Red Cell Dist. Width 14.4 % (11.5-14.5); White Blood Cell Count 10.9 10^3/uL (4.8-10.8)
[2024-11-01 06:57] LABS: ALT (SGPT) 26 U/L (0-50); AST (SGOT) 49 U/L (17-59); Albumin 3.2 g/dl (3.5-5.0); Alkaline Phosphatase 234 U/L (38-126); Blood Urea Nitrogen 12 mg/dl (9-20); Calcium 7.8 mg/dl (8.4-10.2); Carbon Dioxide 31 mmol/L (22-30); Chloride 95 mmol/L (98-107); Estimated Creatinine Clearance 77 ml/min; Glucose 152 mg/dl (70-99); Potassium 2.9 mmol/L (3.5-5.1); Sodium 137 mmol/L (135-145); Total Bilirubin 1.3 mg/dl (0.2-1.3); Total Protein 5.9 g/dl (6.3-8.2); eGFR > 60.00
[2024-11-01 07:24] VITALS: BP 152/79
[2024-11-01 07:39] LABS: Glucose - Point of Care 149 mg/dl (70-99)
[2024-11-01] MEDS: LIPITOR 80 MG PO (08:51)
[2024-11-01] MEDS: ASPIR LOW (ENTERIC COATED) 81 MG PO (08:51)
[2024-11-01] MEDS: DIOVAN 160 MG PO (08:51)
[2024-11-01] MEDS: COREG 6.25 MG PO (08:51)
[2024-11-01] MEDS: VISBIOME 2 CAP PO (08:52)
[2024-11-01] MEDS: ANTIFUNGAL CLEAR 1 APPLIC TOPICAL (08:55)
[2024-11-01] MEDS: TYLENOL 1000 MG PO (08:56)
[2024-11-01] MEDS: HEPARIN SC (09:08)
[2024-11-01] MEDS: KCL 270 MEQ IV (09:16)
[2024-11-01] MEDS: KCL 40 MEQ PO ×2 (09:29→12:06)
--- NOTE | 2024-11-01 11:17 | W.PN.ID1 ---
Addendum entered and electronically signed by Kristi Mckenzie MD 11/01/24 15:11:
I saw and evaluated the patient. I reviewed the resident�s note and agree with findings and plan as documented in the resident�s note.
S: Like to go home. No subjective fevers or chills
O: Tmax 100.7 x 1
Exam: LLE decreased erythema/edema. + dry scales on 2nd, 3rd, 4th toe webs
WBC 10.9
A: #Left lower extremity nonpurulent cellulitis - improving
#Left foot tinea pedis.
# Low grade temp x 1 resolved
# Leukocytosis resolving
P:
s/p 3 days of clindamycin (toxin inhibitor)
Can transition cefazolin to amoxicillin 1000mg po q8h x 10 more days
Continue MP-Wrap.
Continue topical antifungal cream to fungus in toe webs.
OK to dc home.
D/W Dr. Harrell
Original Note:
Date of Service
Date of Service: November 01, 2024
Today's Communication
Amoxicillin 1g q8 for 10 days
Assessment / Plan
Assessment/plan
#Left lower extremity nonpurulent cellulitis
#Sepsis present on admission-now improving
# 'PCN allergy' ruled out. History of facial swelling from eye gtt after cataract surgery. None of antibiotics eyedrops containing penicillin
#Tinea Pedis
-Blood cultures negative to date
-On cefazolin IV (day 5). will D/c home on Amoxicillin 1g q8 for 10 day course to complete 15 days of abx use.
-Completed Short course clindamycin 900 mg IV q8 today 11/01 as toxin inhibitor.
-Mp wrap.
-Elevate leg
-Trend WBC, temperature
-Follow clinically
-Topical Miconazole application in-between toes.
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
Hypertension
Hyperlipidemia
History of recurrent cellulitis
T2DM
Gout
Chief Complaint
-: Clinical Sepsis and Cellulitis
Subjective / Review of Systems
Review of Systems: No Fever and No Chills
Vital Signs / Physical Exam
Vital Signs
Vital Signs
Temp Pulse Resp BP Pulse Ox
98.3 F 80 20 152/79 94
11/01/24 07:24 11/01/24 08:51 11/01/24 07:24 11/01/24 08:51 11/01/24 07:24
Physical Exam
Constitutional: No Acute Distress
Cardiovascular: Regular Rate and S1/S2
Pulmonary: Clear
Gastrointestinal: Soft, Non Tender and Non Distended
Extremities: Other (Left lower extremity erythematous from approximately knee to lower ankle area, greatly improved.)
Neurological: AO x 3
Objective Data
Lab Data
Lab Results
11/01/24 05:57
11/01/24 05:57
ESR Cancelled 10/28/24 05:54
Estimated Creat Clear 77 ml/min 11/01/24 05:57
Lactic Acid Cancelled 10/27/24 12:30
Total Bilirubin 1.3 mg/dl (0.2-1.3) 11/01/24 05:57
AST 49 U/L (17-59) 11/01/24 05:57
ALT 26 U/L (0-50) 11/01/24 05:57
Alkaline Phosphatase 234 U/L (38-126) H 11/01/24 05:57
C-Reactive Protein 261.70 mg/L (0.0-10.00) H 10/28/24 05:54
Most recent labs reviewed.
Micro Results:
10/27/24 08:35 Blood Culture - Final
Blood/Venous No Growth - Final Report
10/27/24 08:35 Blood Culture - Final
Blood/Venous No Growth - Final Report
10/28/24 08:50 MRSA Screen - Final
Nose No Methicillin Resistant Staphylococcus aureus isolated.
10/27/2024 peripheral vascular ultrasound: Left lower extremity edema, especially in the calf region, which precludes visualization of the posterior tibial and peroneal veins. There is otherwise no evidence of thrombus involving the left lower
extremity femoral-popliteal deep venous system.
[2024-11-01 12:19] LABS: Glucose - Point of Care 240 mg/dl (70-99)
--- NOTE | 2024-11-01 13:07 | W.PN.HOSP.TC ---
Addendum entered and electronically signed by Norberto Harrell MD 11/01/24 15:36:
[id number]
Addendum entered and electronically signed by Norberto Harrell MD 11/01/24 13:46:
Amoxicillin 1 g every 8 for 10 days
Follow-up BMP this evening, if improved�discharge
Follow PCP within 1 week with close BMP, CBC
More than 30 minutes spent in discharge including
Final examination of the patient
Summarizing hospital stay
Instructions for continuing care to all relevant caregivers
Preparation of discharge records, prescriptions, and referral forms
Total time spent (36 in minutes):
Original Note:
Today's Communication/Plan
-
cont iv abx
aggressive K repletion;
F/u mag
Assessment / Plan
Assessment / Plan
Physical Exam
General: No Apparent Distress and Comfortable
HEENT: Atraumatic and Other (Dry mucous member)
Respiratory: Clear
Cardiac: S1/S2
GI: Soft and Non Tender
Rectal: No Maroon Stools
Genito-urinary: No No costovertebral tender
Musculoskeletal: Other (Left lower extremity tenderness, erythema and mild swelling from knee to ankle area) slightly improved
Skin: No Rash
Neuro: AO x 3 and Nonfocal/grossly intact
Psych: Calm and Intact Judgment/Insight
64 years old male presented with left lower extremity cellulitis
#Cellulitis of left lower extremity
#Sepsis present on admission with tachycardia, leukocytosis, fever
-Switch IV Vanc to IV cefazolin (day 4)
-Completed short course of clindamycin 900 mg IV every 8 for 3 days (D3)
� Mp wrap, elevate extremities
-Blood culture x 2
-Doppler ultrasound, no DVT
- Tylenol for fever, mild to moderate pain, avoid nonsteroidal anti-inflammatory medication due to kidney insufficiency
-IV morphine for severe pain
-Intravenous fluid for hydration
-Consulted ID, appreciate input
#Transaminitis
#Hyperbilirubinemia
� I suspect secondary to antibiotics, DILI - Improving
� Follow-up right upper quadrant sono - no acute findings; possible early cirrhosis - f/u fibroscan outpt
� No tenderness upon palpation of right upper quadrant
#Acute kidney injury.
-monitor with resuscitation
-resolved
# Sinus tachycardia, reactive due to fever and infection.
-Continue with carvedilol monitor on telemetry. Patient denied chest pain
# History of coronary artery disease.
-No chest pain.
- Continue with aspirin, statin, beta-arsenio.
-Hold valsartan due to kidney insufficiency
#History of primary hypertension
-will continue with carvedilol.
-resume ARB
-Add as needed hydralazine.
#Hypokalemia
-monitor and replete
-has been refusing po K apparently
-F/u mag
# Hyponatremia
-resolved with Resuscitation
Continue IV fluid
# Type 2 diabetes.
Hold metformin.
Will do insulin sliding scale and Accu-Cheks.
# Hyperlipidemia, continue with atorvastatin
# DVT prophylaxis with subcu heparin
Anticipated Discharge: 24 - 48 hours
Subjective/Interval History
-
Date of Service: November 01, 2024
Erythema improving although some areas with deep redness still at the present
Objective Data
-
Labs:
Laboratory Results
11/01/24
05:57
WBC 10.9 H
Hgb 11.0 L
Hct 33.8 L
Plt Count 266
Sodium 137
Potassium 2.9 L
Chloride 95 L
Carbon Dioxide 31 H
BUN 12
Creatinine 1.0
Glucose 152 H
Calcium 7.8 L
Total Bilirubin 1.3
AST 49
ALT 26
Alkaline Phosphatase 234 H
Vital Signs:
Vital Signs
Temp Pulse Resp BP Pulse Ox
98.3 F 80 20 152/79 94
11/01/24 07:24 11/01/24 08:51 11/01/24 07:24 11/01/24 08:51 11/01/24 07:24
I&O
10/31/24 11/01/24 11/02/24
06:59 06:59 06:59
Intake Total 495 / 495 1530 / 1530
Balance 495 / 495 1530 / 1530
Review of Systems
-
History Source: Patient
All other systems: Not reviewed unless documented
Data Reviewed
-
Ultrasound: Report Reviewed by me
Labs: Labs Reviewed by me
--- NOTE | 2024-11-01 13:46 | W.DS.TRANS ---
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
-
Discharge Instructions:
Discharge Diagnosis/Procedures Cellulitis
Diet Low Cholesterol,Low Fat,Diabetic, Carb
Controlled
Activity As tolerated
Blood Work CBC, CMP in 3 to 5 days with PCP; follow-up CBC
and potassium closely
Others Tests FibroScan or MRI to evaluate cirrhosis
outpatient
Wound Care Continue Mp wrap, elevate extremities
Instructions:
Stand-Alone Forms:
Changes to Home Medications: Yes
Discharge Medications:
DC Medications w/original date entered in [employer]
aspirin 81 mg tablet,delayed release 81 mg PO DAILY #1 tab 06/19/19
carvedilol 6.25 mg tablet 6.25 mg PO BID 08/09/19
atorvastatin 40 mg tablet 80 mg PO HS 10/13/21
metformin 500 mg tablet,extended release 24 hr 500 mg PO HS 10/13/21
valsartan 160 mg tablet 160 mg PO DAILY 10/27/24
Lactobac/Bifidobac [Visbiome] 2 cap PO DAILY 10 days 11/01/24
amoxicillin 500 mg tablet 1,000 mg (2 x 500 mg) PO Q8H 10 days #60 tabs 11/01/24
miconazole nitrate 2 % topical ointment (Critic-Aid Clear AF (miconazole)) 1 applic topical BID #1,200 grams 11/01/24
Home Medication Changes
Lactobac/Bifidobac [Visbiome] 2 cap PO DAILY 10 days 11/01/24
amoxicillin 500 mg tablet 1,000 mg (2 x 500 mg) PO Q8H 10 days #60 tabs 11/01/24
miconazole nitrate 2 % topical ointment (Critic-Aid Clear AF (miconazole)) 1 applic topical BID #1,200 grams 11/01/24
Pending Results: No
[2024-11-01 13:52] LABS: Magnesium 1.5 mg/dl (1.6-2.3)
--- NOTE | 2024-11-01 13:57 | CM ---
Patient seen at bedside today.
Discharge to home, no needs
IMM - n/a
PLAN: home, no needs
son to transport
[2024-11-01] MEDS: MAGNESIUM SULFATE 50 IV (13:58)
[2024-11-01 14:33] LABS: Potassium 3.7 mmol/L (3.5-5.1)
[2024-11-01] MEDS: AMOXIL 1000 MG PO (15:00)
[2024-11-01] MEDS: ANCEF IV (15:14)
[2024-11-01 15:18] LABS: Blood Urea Nitrogen 12 mg/dl (9-20); Calcium 8.3 mg/dl (8.4-10.2); Carbon Dioxide 30 mmol/L (22-30); Chloride 98 mmol/L (98-107); Estimated Creatinine Clearance 77 ml/min; Glucose 167 mg/dl (70-99); Potassium 3.6 mmol/L (3.5-5.1); Sodium 139 mmol/L (135-145); eGFR > 60.00
== END 2024-11-01 17:10 | disposition home or self-care (01) | DRG 872 ==
LOC: 2 NORTH 10:16
PROVIDERS: Physician Assistant Medical; ADMITTING PHYSICIAN Internal Medicine; ATTENDING PHYSICIAN Internal Medicine; EMERGENCY PHYSICIAN Emergency Medicine; FAMILY PHYSICIAN Family Medicine; OTHER PHYSICIAN Internal Medicine Infectious Disease
DX: A41.9 Sepsis, unspecified organism (principal); L03.116 Cellulitis of left lower limb; N17.9 Acute kidney failure, unspecified; E87.1 Hypo-osmolality and hyponatremia; I10 Essential (primary) hypertension; I25.10 Atherosclerotic heart disease of native coronary artery without angina pectoris; E78.00 Pure hypercholesterolemia, unspecified; E11.9 Type 2 diabetes mellitus without complications; E87.6 Hypokalemia; K74.60 Unspecified cirrhosis of liver; K21.9 Gastro-esophageal reflux disease without esophagitis; E86.0 Dehydration; M10.9 Gout, unspecified; Z95.1 Presence of aortocoronary bypass graft; Z79.84 Long term (current) use of oral hypoglycemic drugs; Z79.82 Long term (current) use of aspirin
CPT/HCPCS: 76700; 76775; 80048; 80053; 80202; 82962; 83036; 83605; 83735; 84132; 85025; 85027; 85652; 86140; 87040; 87070; 93971; 96361; 96374; 99285

== ENCOUNTER 2024-11-07 15:17 | Observation (INO) | payer OTHER, SELFPAY ==
[2024-11-07 09:15] VITALS: BP 172/93
[2024-11-07 09:29] VITALS: BP 166/90
--- NOTE | 2024-11-07 09:38 | ED.GENMED ---
History of Present Illness
General
Chief Complaint: Skin Problem
Source: patient
Exam Limitations: none
Time Seen by Provider: 11/07/24 09:30
History of Present Illness
History of Present Illness:
See MDM
Past History
Past History
ED Past Medical History: CAD, GERD, HTN, Hypercholesterolemia, NIDDM (Diet controlled) and Other (Cellulitis)
ED Past Surgical History: Cardiac (Cardiac catheterization 06/19/2019, no stents, CABG x 3 2018)
Social History
Tobacco: Non-smoker
Alcohol: Occasional
Drug: None
Personal: Other ()
Living: alone
Employment: Employed
Family History
Family History: CAD
Phy Exam
Physical Exam
Physical Exam:
See MDM
Course
Orders/Labs/Results
Orders:
Orders
11/07/24 10:03
Oxycodone/Acetaminophen [Percocet 5/325] 1 tablet PO NOW STA
11/07/24 10:18
Body Fluid Cell Count Urgent
What is the Body Fluid: joint
Date Specimen was Collected: 11/07/24
Time Specimen was Collected: 10:14
Comment: with DIFF
Body Fluid Crystals Urgent
What is the Body Fluid: joint
Date Specimen was Collected: 11/07/24
Time Specimen was Collected: 10:14
Fluid Culture with Gram Stain Urgent
JARROD Source: Joint Fluid
Specimen Description:
Date Specimen was Collected: 11/07/24
Time Specimen was Collected: 10:14
Gram Stain Stat
JARROD Source: Joint
Specimen Description:
Date Specimen was Collected: 11/07/24
Time Specimen was Collected: 10:14
11/07/24 12:36
Complete Blood Count/With Diff Urgent
Comprehensive Metabolic Panel Urgent
11/07/24 12:42
CefTRIAXone [Rocephin] 2,000 mg IV NOW STA
Colchicine 0.6 mg PO NOW STA
11/07/24 12:44
Vancomycin [Vancocin] 2,000 mg 0.9% Sodium Chloride 500 ml [Nss] 500 ml IV NOW
Vital Signs
Initial and Last Documented VS:
Initial Vital Signs
Temp Pulse Resp BP Pulse Ox
97.7 F 97 18 172/93 99
11/07/24 09:15 11/07/24 09:15 11/07/24 09:15 11/07/24 09:15 11/07/24 09:15
Last Documented Vital Signs
Temp Pulse Resp BP Pulse Ox
97.7 F 84 14 164/92 98
11/07/24 09:15 11/07/24 10:15 11/07/24 09:45 11/07/24 10:00 11/07/24 10:00
Procedures
Incision/Drainage/Joint Aspiration
Left Anterior Lateral Knee:
Anethesia: 1% Lidocaine with Epi
Preparation: cleaned with Betadine
Type of procedure: drain
Nature of site: other (Knee effusion)
Loculations broken up: No
How much fluid was obtained?: number in mls (60 mL)
Fluid description: straw colored
Treatment: other (Mp wrap applied)
MDM/Problems Addressed
Differential Diagnosis Includes:
HPI and MDM Narrative:
64-year-old male presenting for evaluation of left knee swelling and pain. Patient acknowledges that he has a history of knee issues and requires arthrocentesis in the past. He was recently admitted for left leg cellulitis. He is currently on
antibiotics and he states the redness has improved. Patient is having trouble ambulating due to the swelling of his knee. Patient signed consent for arthrocentesis
Physical exam
General: Well appearing and non-toxic
HEENT: protecting airway
Neck: appears supple
CV: No evidence of cyanosis
Resp: No accessory muscle use
Abd: Non-distended
Extremities: Left knee effusion without cellulitic changes. Cellulitis noted to left leg that has improved from the skin markings
Neuro: alert
Psych: Normal affect
Skin: Intact
Problems Addressed including Acute and Chronic Conditions affecting care:
1. Left knee effusion
Acuity: acute
Prognosis: stable
Details: Patient signed consent for arthrocentesis
2. [ ]
Acuity: acute
Prognosis: stable
Details:
3. [ ]
Acuity: acute
Prognosis: stable
Details:
4. [ ]
Acuity: acute
Prognosis: stable
Details:
5. [ ]
Acuity:
Prognosis:
Details:
Updates
10 AM patient tolerated procedure well and 60 cc of straw-colored fluid that was slightly cloudy removed from the knee using the lateral approach. Will send for fluid analysis
12:45 PM patient does have elevated white blood cell count and PMN %. Although the white blood cell count is not quite as high as can sometimes be seen in septic arthritis, the percentage of PMN is high. Given the monosodium crystals, it is likely
gout but given the current cellulitis, will admit as possible septic arthritis pending fluid culture. Patient started on vancomycin and ceftriaxone. Orthopedics was curb sided about this and likely does not need to get involved unless culture is
positive.
Differential Diagnosis (but not limited to): Gout, injury, effusion, hemarthrosis
Testing considered: Knee x-ray but he denies trauma
Drug therapy (if applicable): OTC meds, please see d/c instruction regarding Rx drugs
Amount and/or Complexity of Data Reviewed
Clinical info obtained from: Patient
External data reviewed: N/A
Labs I independently reviewed (but not limited to): elevated WBC and PMN% in fluid analysis
Radiology: N/A
Pulse Ox: not hypoxic
EKG independently reviewed: N/A
Foundry Technician: N/A
Critical Care: N/A
Risk of Complication:
Social Determinants of health: Good social support
Discussed with other providers: Hospitalist, orthopedic
Escalation of Care includes Admit/Obs: Given the concern for septic arthritis versus gout, will admit with IV antibiotics pending fluid culture
Occasional wrong word or 'sound a like' substitutions may have occurred due to the inherent limitations of voice recognition software. Read the chart carefully and recognize, using context, where substitutions have occurred.
*Critical Care Note
Total Time (30-74mins, 75-104mins- exclusive of procedures): Not Applicable
ED Attending Note
-
Portions of this chart may have been created with voice recognition software.� Occasional wrong word or��sound alike� substitutions may have occurred due to the inherent limitations of voice recognition software.
Discharge Plan
Departure
Patient Disposition: Admit
Date of Disposition: 11/07/24
Time of Disposition: 12:55
Admit to: Med/Surg
Presentation/result/management discussed w/ accepting MD/DO: Hospitalist
Discharge Problem:
Effusion of knee joint, left, Gout
Prescriptions:
No Action
atorvastatin 40 MG tablet
80 mg PO HS
metformin 500 MG tablet extended release 24 hr
500 mg PO HS
valsartan 160 mg Tablet
160 mg PO DAILY
doxycycline hyclate 100 mg tablet
100 mg PO Q12H
Rx Instructions:
11/07/24: doxycycline 100mg q12h x 10 days. 1st dose in PM on 11/05/24
carvedilol 6.25 MG tablet
6.25 mg PO BID
aspirin 81 MG tablet,delayed release (DR/EC)
81 mg PO DAILY
Referrals:
Marcelino Jackson DO [Family Provider] -
Interventions
Interventions:
*Risk Screen - Suicide Last Done: 11/07/24 09:15
*General Assessment Last Done: 11/07/24 09:15
*Neglect/Abuse Screening Last Done: 11/07/24 09:15
*ED COVID-19 Vaccine History Last Done: 11/07/24 09:15
Discharge Date and Time
Print Language: BANGLADESHI
[2024-11-07 10:00] VITALS: BP 164/92
[2024-11-07] MEDS: PERCOCET 5/325 1 TABLET PO (10:16)
[2024-11-07 11:58] LABS: Body Fluid Mononuclear 12.1 %; Body Fluid Polymorphonuclear 87.9 %; Body Fluid WBC 22368 /CUMM
[2024-11-07 12:00] LABS: Body Fluid Second Tech FB
[2024-11-07 13:05] LABS: % Basophils 0.2 % (0-2); % Eosinophils 0.8 % (0-6); % Immature Granulocytes 0.6 % (0-0.5); % Lymphocytes 16.3 % (20.5-51.1); % Monocytes 6.4 % (1.7-9.3); % Neutrophils 75.7 % (42.2-75.2); Absolute Eosinophils 0.1 10^3/uL (0-0.7); Absolute Immature Granulocytes 0.1 10^3/uL (0-0.05); Absolute Lymphocytes 2.4 10^3/uL (1.2-3.4); Absolute Monocytes 0.9 10^3/uL (0.1-0.6); Absolute Neutrophils 10.9 10^3/uL (1.4-6.5); Hematocrit 31.4 % (39.0-52.0); Hemoglobin 10.2 g/dL (13.0-18.0); Mean Corp Hgb Conc. 32.5 g/dL (33.0-37.0); Mean Corpuscular Volume 80.1 fL (80.0-94.0); Mean Platelet Volume 9.1 fL (7.4-10.4); Nucleated Red Blood Cells % 0 % (-); Platelet Count 381 10^3/uL (130-400); Red Blood Cell Count 3.92 10^6/uL (4.70-6.10); Red Cell Dist. Width 13.9 % (11.5-14.5); White Blood Cell Count 14.5 10^3/uL (4.8-10.8)
[2024-11-07] MEDS: COLCHICINE 0.6 MG PO ×2 (13:06→20:29)
[2024-11-07] MEDS: ROCEPHIN 2000 MG IV (13:06)
[2024-11-07 13:09] VITALS: BMI 27.0
[2024-11-07 13:19] LABS: ALT (SGPT) 24 U/L (0-50); AST (SGOT) 17 U/L (17-59); Albumin 3.7 g/dl (3.5-5.0); Alkaline Phosphatase 170 U/L (38-126); Blood Urea Nitrogen 15 mg/dl (9-20); Calcium 8.8 mg/dl (8.4-10.2); Carbon Dioxide 29 mmol/L (22-30); Chloride 99 mmol/L (98-107); Estimated Creatinine Clearance 71 ml/min; Glucose 131 mg/dl (70-99); Potassium 4.5 mmol/L (3.5-5.1); Sodium 137 mmol/L (135-145); Total Bilirubin 1.5 mg/dl (0.2-1.3); Total Protein 6.8 g/dl (6.3-8.2); eGFR > 60.00
--- NOTE | 2024-11-07 13:49 | HPS.HSE ---
Family Physician
-
Family Physician: Marcelino Jackson
Chief Complaint
-
Left knee swelling, erythema
History of Present Illness
64-year-old male Who states he was admitted at [facility] 10/27 - 11/01/2024 for a left lower extremity cellulitis he was treated with cefazolin x 3 days, clindamycin x 3 days he did spike a temperature on 10/31/2024 however on 11/01 he was
normothermic and insisting on going home. He was sent home on amoxicillin 1000 mg every 8 hours x 10 days and to continue Mp wrap with topical antifungal cream to fungus in toe webs. He states abruptly 3 days ago his knee became swollen and red.
He reports his PCP spoke with infectious disease Dr. Mckenzie and his Amoxicillin was changed to Doxycycline 100 mg every 12 hours on 11/05 -2 days ago of which he has taken 4 doses. He came to the ER due to increased pain with swelling and erythema
of the left knee, however his cellulitis is improving and it is well below the prior border markings along with erythema less in color. While in the hospital he had Mp wraps applied from his lower knee to the entire foot he was supposed to
continue this on discharge but reports he was unaware. He was given a prescription for antifungal topical cream to be applied between webs of left and right toes of which she is not doing. He reports he is unable to reach his toes. His Radha
and son Adi state they will apply the cream in between the toes. I advised them to wear gloves, wash his shoes and use daily clean socks. I also spoke with patient he can soak his feet in 1 part warm water 1 part apple cider vinegar for 15
minutes 2-3 times a week.
He denies current fever, chills, chest pain, palpitations, shortness breath, cough, abdominal pain, nausea, vomiting, diarrhea, urinary symptoms. 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
He is status post left knee effusion with arthrocentesis in the ER showing elevated WBC and elevated PMN percent there are some monosodium crystals. He is unable to bear weight due to pain.
He has past medical history of nonobstructive CAD cardiac cath 7 03/20/2019 no stents, CABG x 3 vessel 2019, HTN, HLD, DM2, GERD, cellulitis left leg, gout left great toe, athletes feet webs of toes, COVID-19 06/15/2021, prostatitis 2004
Medical History
Past Medical History
Past Medical History: Reports Other
Additional Past Medical History:
nonobstructive CAD cardiac cath 7 03/20/2019 no stents
CABG x 3 vessel 2018
HTN
HLD
DM2
GERD
cellulitis left leg 10/27 - 11/01/2024 admission
athletes feet webs of toes
gout left great toe
COVID-19 06/15/2021
prostatitis 2004
Past Surgical History: Reports Other
Additional Past Surgical History:
Cataract extraction 2013
Left eye retina repair 10/27/2017
Nonobstructive CAD 06/15/2019
Cabg x 3 vessel 07/2019
Social History
Tobacco: Non-smoker
Alcohol: Occasional (Once every 3 weeks)
Personal:
Living: With Family ( Radha and son Adi)
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
Family History
Family History: Other (Mother living hypertension DM 2, CVA, father age 86 unknown type of cancer somewhere in abdomen, history of CAD [place] x 3 early 60s, HTN, HLD, 1 brother early CAD [place] age 50)
Allergies / Home Medications
Allergies reflects when Allergies were last updated in [employer].
Home Medications with original date entered in [employer]
Allergy/Medication List:
Allergies
Allergy/AdvReac Type Severity Reaction Status Date / Time
No Known Allergies Allergy Verified 11/07/24 09:18
Home Medications
atorvastatin 40 mg tablet 80 mg PO HS High Cholesterol 10/13/21
metformin 500 mg tablet,extended release 24 hr 500 mg PO HS Diabetes 10/13/21
valsartan 160 mg tablet 160 mg PO DAILY Blood Pressure 10/27/24
aspirin 81 mg tablet,delayed release 81 mg PO DAILY Blood Clot Prevention/Tx 11/07/24
carvedilol 6.25 mg tablet 6.25 mg PO BID Blood Pressure 11/07/24
doxycycline hyclate 100 mg tablet 100 mg PO Q12H x 10 days Infection 11/07/24
Review of Systems
-
History Source: Patient and Family
A 12 point ROS was completed and negative except as noted: Yes
Constitutional: Denies Fever or Chills
EENT: Denies Sore Throat or Runny Nose
Respiratory: Denies Cough or Trouble Breathing
Cardiac: Denies Chest Pain, Palpitations or Syncope
Abdomen/GI: Denies Abdominal Pain, Nausea, Vomiting, Diarrhea, Constipated or Bloody Stools
: Denies Dysuria, Frequency, Flank Pain, Incontinence, Difficulty Voiding or Urgency
Musculoskeletal: Reports Joint Pain (Left knee), Joint Swelling (Reported prior to arthrocentesis) and Edema (Trace to +1 left lower extremity with improving cellulitis below margin outlines, athletes feet with flakes of skin between webs of left
and right feet)
Skin: Denies Itching or Rash
Neurological: Denies Dizzy or Headache
Endocrine: Reports No Symptoms
Hematologic/Lymphatic: Reports No Symptoms
Psych: Reports Calm
Physical Exam
Vital Signs
Vital Signs
Temp Pulse Resp BP Pulse Ox
97.7 F 84 14 164/92 98
11/07/24 09:15 11/07/24 10:15 11/07/24 09:45 11/07/24 10:00 11/07/24 10:00
Physical Exam
General: Conversant and Pain; No Fever or Chills
HEENT: NormoCephalic, Anicteric, Moist mucous membranes, PERRLA and [place] Conjunctivae
Respiratory: Clear; No Wheezes, Rales or Rhonchi
Cardiac: S1/S2, Regular Rhythm and Peripheral Edema (Trace to +1 left lower extremity); No Murmur, Rub or Gallop
GI: Soft, Non Tender, Non Distended, Normal Bowel Sounds and No Hepatosplenomegaly
Rectal: Deferred by Provider
Genito-urinary: Deferred by me
Musculoskeletal: No Clubbing, No Cyanosis and Edema, Left Lower Extremity (Trace to +1 left lower extremity with improving cellulitis below margin outlines, athletes feet with flakes of skin between webs of left and right feet); No Edema, Left Upper
Extremity or Edema, Right Upper Extremity
Skin: Warm and Dry; No Rash
Neuro: AO x 3, No Motor Deficits, Nonfocal/grossly intact and No Sensory Deficits; No Slurred Speech, Facial Droop, Tremors or Sedated
Psych: Calm
Laboratory Results
-
11/07/24 12:58
11/07/24 12:58
Laboratory Results
Total Bilirubin 1.5 mg/dl (0.2-1.3) H 11/07/24 12:58
AST 17 U/L (17-59) 11/07/24 12:58
ALT 24 U/L (0-50) 11/07/24 12:58
Alkaline Phosphatase 170 U/L (38-126) H 11/07/24 12:58
Data Reviewed
-
Lab Data: Labs Reviewed by me
Impression/Plan
-
Impression/plan:
Observation MedSurg
#Acute left knee effusion secondary to GOUT flare with acute on chronic left leg cellulitis(improving)
#Hx Gout left great toe many years ago
#Hx chronic leukocytosis WBC 14.5 > 10.9 on 11/01/2024 6 days ago
Bedside arthrocentesis showing crystals -monosodium urate
-Consult Infectious disease
-Follow arthrocentesis fluid for culture
-Dr. Barriga aware only needs consult if KNEE fluid culture is positive
-Tylenol mild pain, Percocet 1-2 tabs moderate/severe pain, bowel regimen
-Will start colchicine
-IV vancomycin, IV Rocephin
-PT/OT/case management consult
#Athletes feet between webs of toes
Patient was advised to apply antifungal cream on DC 11/01 but has not
-We will resume antifungal cream(Miconazole nitrate antifungal clear twice daily) in between toe webs-his and son state they will help patient apply the cream as he states he cannot bend over and reach his toes
-I also spoke with patient he can soak his feet in 1 part warm water 1 part apple cider vinegar for 15 minutes 2-3 times a week.
#DM 2
Accu-Cheks with SSI low, HgbA1c was 6.8 on 10/28/2024
-Hold metformin 500 mg at bedtime
#HTN�benign
Continue carvedilol 6.25 mg twice daily, valsartan 160 mg p.o. daily
#HLD
-Continue atorvastatin 80 mg at bedtime
#CAD/CABG x 3 vessel 07/2019
-Continue aspirin 81 mg daily, atorvastatin 80 mg at bedtime, Coreg 6.25 mg twice daily
#Prostatitis 2003
DVT prophylaxis
Subcu Lovenox
Full code
[2024-11-07] MEDS: VANCOCIN 540 MG IV (13:54)
--- NOTE | 2024-11-07 14:29 | W.PN.UPDATE ---
Update Note
Progress Note Update
This is an addendum to the H&P written by Angelina Ahuja on 11/07/2024.� Patient seen examined independently with DEBURR OPERATOR.
64-year-old male history of gout, CAD status post CABG, hypertension, diabetes, hyperlipidemia, GERD, here with left knee swelling/pain.� Recently discharged 6 days ago after being admitted for cellulitis of left lower extremity treated
with�Amoxcillin�with worsening symptoms switched to doxycycline on 11/05 now with improvement.�
Underwent arthrocentesis in the ER showing 22,000 WBC, monosodium urate crystals.
Labs show leukocytosis which is chronic.
Presentation consistent with gout flare, less likely septic arthritis.� Arthrocentesis culture pending.� Vancomycin/ceftriaxone started.� Colchicine started.� ID consulted.� Ortho notified however official consult only if fluid culture positive.
[2024-11-07 16:36] VITALS: BP 189/103
[2024-11-07] MEDS: PERCOCET 5/325 2 TABLET PO ×2 (16:41→20:32)
[2024-11-07 17:43] LABS: Uric Acid 5.3 mg/dl (3.5-8.5)
[2024-11-07 17:44] LABS: Glucose - Point of Care 127 mg/dl (70-99)
[2024-11-07 17:51] VITALS: BP 156/91
[2024-11-07] MEDS: NOVOLOG FLEXPEN-LOW RESISTANCE SC (17:53)
--- NOTE | 2024-11-07 17:55 | CON.ID ---
Consultation
-
Date/Time Consultation Requested: 11/07/2024 1512
Date/Time Consultation Performed: 11/07/2024 1650
Requesting Provider: Angelina Ahuja
Performing Provider: Dr. Johnson
Reason for Consultation: Left knee swelling
Chief Complaint / Past History
History of Present Illness
Pramod Cabrera is a 64-year-old male being evaluated at the request of Angelina Ahuja in regards to left knee swelling. History is obtained from chart review, along with patient interview.
The patient recently was hospitalized at [facility] from 10/28 to 11/01, during which time he was treated for left lower extremity cellulitis. At discharge, he was transitioned to amoxicillin 1000 mg p.o. every 8 hours, to take for an
additional 10-day course. He notes that over that time while he was home he did not feel that the leg was getting better, insofar as the redness persisted, and he continued to have swelling. He denies significant pain, though. He denied extension
of erythema outside of previous boundaries. 2 days ago he saw his PCP and his antibiotics were transitioned to doxycycline. He notes that 2 days ago the knee swelled up with significant pain, and it is ongoing presents prompted him to come to the
hospital for further evaluation. During his time home he denied any fevers or chills. He denied any redness extending up his thigh, and he denies any significant pain in the calf or distal lower extremity area.
In the emergency room, the knee was tapped with the findings of synovial inflammation, along with crystals. Infectious Diseases is now asked to comment upon further antimicrobial therapy.
Past History
Additional Past Medical History:
HTN
Dyslipidemia
DM type II
Recurrent lower extremity cellulitis
Count
Left foot arthritis
Past Surgical History: Other (Cardiac catheterization 06/19/2019, no stents, CABG x 3 2018)
Additional Past Surgical History:
Cataract extraction 2013
Left eye retina repair 10/27/2017
Nonobstructive CAD 06/15/2019
Cabg x 3 vessel 07/2019
Allergy History:
No Known Allergies Allergy (Verified 11/07/24 09:18)
Medications Reviewed: Yes
Current Antibiotics:
Vancomycin / rocephin in ER
Social History
Tobacco: Non-Smoker
Alcohol: Occasional
Drug: None
Living: Alone
Employment: Employed
Family History
Family History: CAD
Review of Systems
Vital Signs
Temp Pulse Resp BP Pulse Ox
98.1 F 81 16 156/91 99
11/07/24 16:36 11/07/24 17:51 11/07/24 16:36 11/07/24 17:51 11/07/24 16:36
Physical Exam
Physical Exam
Constitutional: No Acute Distress, Comfortable and Non-toxic
Eyes: No Conjunctival Hemorrhage and Sclera Anicteric
Oral: No Thrush
Cardiovascular: Regular Rate and S1/S2; Negative S3/S4
Pulmonary: Clear; Negative Wheezes or Rales
Gastrointestinal: Soft, Non Tender and Non Distended
Extremities: Edema (1+ LLE) and Erythema (LLE; mild with improvement with elevation); Negative Calf Swelling
Musculoskeletal: Joint Swelling (left knee)
Skin: Warm and Dry
Neurological: Awake and Alert
Lab / Diagnostic Study Results
11/07/24 12:58
11/07/24 12:58
Abs Immat Gran (auto) 0.1 10^3/uL (0-0.05) H 11/07/24 12:58
Absolute Neuts (auto) 10.9 10^3/uL (1.4-6.5) H 11/07/24 12:58
Absolute Lymphs (auto) 2.4 10^3/uL (1.2-3.4) 11/07/24 12:58
Absolute Monos (auto) 0.9 10^3/uL (0.1-0.6) H 11/07/24 12:58
Absolute Basos (auto) 0.0 10^3/uL (0-0.2) 11/07/24 12:58
Immature Gran % 0.6 % (0-0.5) H 11/07/24 12:58
Neutrophils % 75.7 % (42.2-75.2) H 11/07/24 12:58
Lymphocytes % 16.3 % (20.5-51.1) L 11/07/24 12:58
Monocytes % 6.4 % (1.7-9.3) 11/07/24 12:58
Eosinophils % 0.8 % (0-6) 11/07/24 12:58
Basophils % 0.2 % (0-2) 11/07/24 12:58
Microbiology Results
Micro:
Laboratory Tests
11/07/24
10:18
Fluid WBC 35049
Fluid Mononuclear Cell 12.1
Fl Polymorphonucl Cell 87.9
Fluid Crystals monosodium urate crystals seen
11/07/24 10:18 Body Fluid Culture - Pending
Joint Fluid Gram Stain - Preliminary
Assessment / Plan
Recent history left lower extremity cellulitis
Acute onset left knee swelling/pain
Suspected acute gout
Leukocytosis
HTN
Dyslipidemia
DM type II
Recurrent lower extremity cellulitis
Count
Left foot arthritis
Recommendations:
Overall presentation highly suggestive of acute gout, given recovery of crystals.
Given that patient has been on antibiotics, acute septic arthritis is much less likely.
Will maintain patient on doxycycline.
Monitor pending cultures.
Treatment of gout as per primary service.
Monitor white count and temperature curve.
[2024-11-07] MEDS: COREG 6.25 MG PO (20:29)
[2024-11-07] MEDS: ANTIFUNGAL CLEAR 1 APPLIC TOPICAL (20:29)
[2024-11-07] MEDS: VIBRAMYCIN 100 MG PO (20:29)
[2024-11-07] MEDS: LIPITOR 80 MG PO (20:31)
[2024-11-07 21:40] LABS: Glucose - Point of Care 150 mg/dl (70-99)
[2024-11-07 23:15] VITALS: BP 136/85
[2024-11-08 06:33] LABS: % Basophils 0.2 % (0-2); % Immature Granulocytes 0.7 % (0-0.5); % Lymphocytes 17.2 % (20.5-51.1); % Monocytes 7.8 % (1.7-9.3); % Neutrophils 73.1 % (42.2-75.2); Absolute Eosinophils 0.1 10^3/uL (0-0.7); Absolute Immature Granulocytes 0.1 10^3/uL (0-0.05); Absolute Lymphocytes 2.2 10^3/uL (1.2-3.4); Absolute Neutrophils 9.5 10^3/uL (1.4-6.5); Hematocrit 30.3 % (39.0-52.0); Hemoglobin 9.4 g/dL (13.0-18.0); Mean Corpuscular Hgb 25.8 pg (27.0-31.0); Mean Platelet Volume 9.2 fL (7.4-10.4); Nucleated Red Blood Cells % 0 % (-); Platelet Count 366 10^3/uL (130-400); Red Blood Cell Count 3.65 10^6/uL (4.70-6.10); Red Cell Dist. Width 13.8 % (11.5-14.5)
[2024-11-08 06:59] LABS: ALT (SGPT) 21 U/L (0-50); AST (SGOT) 15 U/L (17-59); Albumin 3.5 g/dl (3.5-5.0); Alkaline Phosphatase 154 U/L (38-126); Blood Urea Nitrogen 14 mg/dl (9-20); Calcium 8.9 mg/dl (8.4-10.2); Carbon Dioxide 30 mmol/L (22-30); Chloride 98 mmol/L (98-107); Estimated Creatinine Clearance 71 ml/min; Glucose 156 mg/dl (70-99); Potassium 4.7 mmol/L (3.5-5.1); Sodium 136 mmol/L (135-145); Total Bilirubin 1.2 mg/dl (0.2-1.3); Total Protein 6.7 g/dl (6.3-8.2); eGFR > 60.00
[2024-11-08 07:54] VITALS: BP 165/90
[2024-11-08 08:08] LABS: Glucose - Point of Care 135 mg/dl (70-99)
[2024-11-08] MEDS: DIOVAN 160 MG PO (08:21)
[2024-11-08] MEDS: VIBRAMYCIN 100 MG PO (08:22)
[2024-11-08] MEDS: COREG 6.25 MG PO ×2 (08:22→20:35)
[2024-11-08] MEDS: ASPIR LOW (ENTERIC COATED) 81 MG PO (08:22)
[2024-11-08] MEDS: COLCHICINE 0.6 MG PO ×2 (08:23→20:34)
[2024-11-08] MEDS: ANTIFUNGAL CLEAR 1 APPLIC TOPICAL ×2 (08:24→20:34)
[2024-11-08] MEDS: NOVOLOG FLEXPEN-LOW RESISTANCE SC ×2 (08:27→13:39)
--- NOTE | 2024-11-08 10:52 | W.PN.ID1 ---
Addendum entered and electronically signed by Kristi Mckenzie MD 11/08/24 15:06:
I saw and evaluated the patient. I reviewed the resident�s note and agree with findings and plan as documented in the resident�s note.
Exam: Left knee + warmth, induration, no erythema.
LLE previous erythema resolved.
# Acute flare of left knee gout
- Synovial fluid + monosodium urate crystals. Cx neg to date
-Continue gout treatment -> now on prednisone.
# Recent LLE cellulitis resolved.
- DC further doxycycline.
Call if any questions.
Original Note:
Date of Service
Date of Service: November 08, 2024
Today's Communication
.
Assessment / Plan
Assessment/plan
#Left knee swelling and pain
#Suspect acute gout
#Leukocytosis
#Recent history of left lower extremity cellulitis on ABX
-S/p arthrocentesis done in the ER showing elevated WBC and elevated PMNs, monosodium crystals present
-Cultures from left knee preliminary negative
-Has been taking antibiotics for the past 12 days, for treatment of left lower extremity cellulitis
-Will stop abx regimen, as cellulitis of LLE has greatly improved.
-Etiology most likely acute gout.
-Monitor WBC, monitor temperature
-Treatment of gout as per primary service
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
HTN
Dyslipidemia
DM type II
Recurrent lower extremity cellulitis
Count
Left foot arthritis
Chief Complaint
-: Other (Left knee swelling)
Subjective / Review of Systems
Review of Systems: No Fever and No Chills
Vital Signs / Physical Exam
Vital Signs
Vital Signs
Temp Pulse Resp BP Pulse Ox
97.7 F 75 16 165/90 98
11/08/24 07:54 11/08/24 07:54 11/08/24 07:54 11/08/24 07:54 11/08/24 07:54
Physical Exam
Constitutional: No Acute Distress
Eyes: No Conjunctival Hemorrhage and Sclera Anicteric
Cardiovascular: Regular Rate and S1/S2
Pulmonary: Clear; Negative Wheezes
Gastrointestinal: Soft, Non Tender and Non Distended
Extremities: Edema and Erythema
Musculoskeletal: Joint Swelling (Left knee)
Neurological: AO x 3
Objective Data
Lab Data
Lab Results
11/08/24 06:02
11/08/24 06:02
Estimated Creat Clear 71 ml/min 11/08/24 06:02
Total Bilirubin 1.2 mg/dl (0.2-1.3) 11/08/24 06:02
AST 15 U/L (17-59) L 11/08/24 06:02
ALT 21 U/L (0-50) 11/08/24 06:02
Alkaline Phosphatase 154 U/L (38-126) H 11/08/24 06:02
Most recent labs reviewed.
Micro Results:
11/07/24 10:18 Body Fluid Culture - Preliminary
Joint Fluid No Growth After 18-24 Hours
Gram Stain - Preliminary
11/07/24 19:45 MRSA Screen - Pending
Nose
[2024-11-08 11:58] LABS: Glucose - Point of Care 148 mg/dl (70-99)
[2024-11-08 13:20] VITALS: BP 158/94; PULSE 78; O2SAT 97
--- NOTE | 2024-11-08 13:32 | W.PN.HOSP.TC ---
Today's Communication/Plan
-
add steroids
continue SSI
Assessment / Plan
Assessment / Plan
#Acute left knee effusion secondary to GOUT flare with acute on chronic left leg cellulitis(improving)
This is gout and was started on Colchicine 0.6 bid. Pt very anxious for this to resolve and thus will add short course of steroids
#Hx Gout left great toe many years ago
#Hx chronic leukocytosis WBC 14.5 > 10.9 on 11/01/2024 6 days ago
Bedside arthrocentesis showing crystals -monosodium urate
-Consult Infectious disease
-Follow arthrocentesis fluid for culture
-Dr. Barriga aware only needs consult if KNEE fluid culture is positive
-Tylenol mild pain, Percocet 1-2 tabs moderate/severe pain, bowel regimen
-Will start colchicine
-IV vancomycin, IV Rocephin
-PT/OT/case management consult
#Recent cellulitis
completed hospital course and dc on 11/01 on Amox, changed as outpt to Doxy when was not improving and has improved on Doxy. Dr. Johnson wishes to continue the Doxy
#Athletes feet between webs of toes
Patient was advised to apply antifungal cream on DC 11/01 but has not
-We will resume antifungal cream(Miconazole nitrate antifungal clear twice daily) in between toe webs-his and son state they will help patient apply the cream as he states he cannot bend over and reach his toes
-I also spoke with patient he can soak his feet in 1 part warm water 1 part apple cider vinegar for 15 minutes 2-3 times a week.
#DM 2
Accu-Cheks with SSI low, HgbA1c was 6.8 on 10/28/2024
-Hold metformin 500 mg at bedtime
Follow glu while on steroids, rapid taper
#HTN�benign
Continue carvedilol 6.25 mg twice daily, valsartan 160 mg p.o. daily
#HLD
-Continue atorvastatin 80 mg at bedtime
#CAD/CABG x 3 vessel 07/2019
-Continue aspirin 81 mg daily, atorvastatin 80 mg at bedtime, Coreg 6.25 mg twice daily
#Prostatitis 2003
DVT prophylaxis
Subcu Lovenox
Full code
Anticipated Discharge: 24 - 48 hours
Subjective/Interval History
-
Date of Service: November 08, 2024
Tells me he needs to get the knee better ARTI due to work issues
Objective Data
-
Labs:
Laboratory Results
11/08/24
06:02
WBC 13.0 H
Hgb 9.4 L
Hct 30.3 L
Plt Count 366
Sodium 136
Potassium 4.7
Chloride 98
Carbon Dioxide 30
BUN 14
Creatinine 1.0
Glucose 156 H
Calcium 8.9
Total Bilirubin 1.2
AST 15 L
ALT 21
Alkaline Phosphatase 154 H
Vital Signs:
Vital Signs
Temp Pulse Resp BP Pulse Ox
97.7 F 75 16 165/90 98
11/08/24 07:54 11/08/24 07:54 11/08/24 07:54 11/08/24 07:54 11/08/24 07:54
I&O
11/07/24 11/08/24 11/09/24
06:59 06:59 06:59
Intake Total 720 / 720
Output Total 220 / 220
Balance 500 / 500
Review of Systems
-
History Source: Patient and Coordinated Provider
Constitutional: Denies Fever
EENT: Reports No Symptoms Reported
Respiratory: Reports No Symptoms
Cardiac: Reports No Symptoms
Abdomen/GI: Reports No Symptoms
Musculoskeletal: Reports Joint Pain (left knee pain)
Physical Exam
-
General: Well Developed, Well Nourished and No Apparent Distress
HEENT: Normocephalic, Atraumatic and Moist Mucous Membranes
Respiratory: Clear to Auscultation; Negative Wheezes, Rales or Rhonchi
Cardiac: Regular Rhythm and S1/S2
GI: Soft, Nontender and Nondistended
Musculoskeletal: No Clubbing, No Cyanosis, No Edema and Other (left knee warm, swelling decreased post drainage in ER of 60 ml)
Skin: Rash (no evidence of cellulitis)
[2024-11-08 13:49] VITALS: BP 158/94; PULSE 78; O2SAT 97
[2024-11-08] MEDS: DELTASONE 40 MG PO (14:00)
[2024-11-08] MEDS: PERCOCET 5/325 1 TABLET PO (15:51)
--- NOTE | 2024-11-08 15:51 | CM ---
Met with patient at bedside; initial assessment completed
Outpatient Observation form explained; refused to sign; copy of form given to patient
Pharmacy verified: [facility] [address], [place]
Patient lives with his in a multilevel home; 2 steps to enter; 12 steps between floors; railings present; powder room 1st floor; 2nd floor bath has tub w/ shower
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
NO DME
No recent SNF or Home Health utilzation history
Family will transport home
Plan: anticipate discharge to home when medically stable; CM will monitor for DC services/needs
[2024-11-08 16:01] VITALS: BP 161/89
[2024-11-08 16:37] LABS: Glucose - Point of Care 172 mg/dl (70-99)
[2024-11-08] MEDS: NOVOLOG FLEXPEN-LOW RESISTANCE 1 UNITS SC (17:11)
[2024-11-08] MEDS: LIPITOR 80 MG PO (20:36)
[2024-11-08 21:17] LABS: Glucose - Point of Care 227 mg/dl (70-99)
[2024-11-08 23:15] VITALS: BP 149/88
[2024-11-09 06:31] LABS: % Basophils 0.2 % (0-2); % Immature Granulocytes 0.8 % (0-0.5); % Lymphocytes 12.1 % (20.5-51.1); % Neutrophils 82.9 % (42.2-75.2); Absolute Immature Granulocytes 0.1 10^3/uL (0-0.05); Absolute Lymphocytes 1.6 10^3/uL (1.2-3.4); Absolute Monocytes 0.5 10^3/uL (0.1-0.6); Absolute Neutrophils 10.8 10^3/uL (1.4-6.5); Hematocrit 32.6 % (39.0-52.0); Hemoglobin 10.3 g/dL (13.0-18.0); Mean Corp Hgb Conc. 31.6 g/dL (33.0-37.0); Mean Corpuscular Hgb 25.6 pg (27.0-31.0); Mean Corpuscular Volume 81.1 fL (80.0-94.0); Mean Platelet Volume 9.4 fL (7.4-10.4); Nucleated Red Blood Cells % 0 % (-); Platelet Count 407 10^3/uL (130-400); Red Blood Cell Count 4.02 10^6/uL (4.70-6.10); Red Cell Dist. Width 13.3 % (11.5-14.5)
[2024-11-09 06:34] LABS: ALT (SGPT) 20 U/L (0-50); AST (SGOT) 17 U/L (17-59); Albumin 3.8 g/dl (3.5-5.0); Alkaline Phosphatase 163 U/L (38-126); Blood Urea Nitrogen 16 mg/dl (9-20); Carbon Dioxide 27 mmol/L (22-30); Chloride 98 mmol/L (98-107); Estimated Creatinine Clearance 79 ml/min; Glucose 173 mg/dl (70-99); Potassium 5.1 mmol/L (3.5-5.1); Sodium 136 mmol/L (135-145); Total Bilirubin 0.8 mg/dl (0.2-1.3); Total Protein 7.1 g/dl (6.3-8.2); eGFR > 60.00
[2024-11-09 07:00] VITALS: BP 161/91
[2024-11-09 08:14] LABS: Glucose - Point of Care 137 mg/dl (70-99)
[2024-11-09] MEDS: NOVOLOG FLEXPEN-LOW RESISTANCE SC ×2 (08:17→12:47)
[2024-11-09] MEDS: COREG 6.25 MG PO ×2 (08:18→21:35)
[2024-11-09] MEDS: DIOVAN 160 MG PO (08:18)
[2024-11-09] MEDS: COLCHICINE 0.6 MG PO ×2 (08:19→21:35)
[2024-11-09] MEDS: ASPIR LOW (ENTERIC COATED) 81 MG PO (08:19)
[2024-11-09] MEDS: DELTASONE 40 MG PO (08:19)
[2024-11-09] MEDS: ANTIFUNGAL CLEAR 1 APPLIC TOPICAL ×2 (08:20→21:35)
--- NOTE | 2024-11-09 11:47 | W.PN.HOSP.TC ---
Today's Communication/Plan
-
begin taper steroids
continue Colchicine
Assessment / Plan
Assessment / Plan
#Acute left knee effusion secondary to GOUT flare with acute on chronic left leg cellulitis(improving)
This is gout and was started on Colchicine 0.6 bid. Pt very anxious for this to resolve and thus will add short course of steroids.
Significant improvement past 24 hrs. Discussed with pt potential dc, he is requesting 1 more day due to some walking instability
#Hx Gout left great toe many years ago
#Hx chronic leukocytosis WBC 14.5 > 10.9 on 11/01/2024 6 days ago
Bedside arthrocentesis showing crystals -monosodium urate
-Consult Infectious disease
-Follow arthrocentesis fluid for culture
-Dr. Barriga aware only needs consult if KNEE fluid culture is positive
-Tylenol mild pain, Percocet 1 tab moderate/severe pain, bowel regimen. Has not used in 24 hrs, will dc
-Will start colchicine
-IV vancomycin, IV Rocephin
-PT/OT/case management consult
#Recent cellulitis
completed hospital course and dc on 11/01 on Amox, changed as outpt to Doxy when was not improving and has improved on Doxy. Dr. Johnson wishes to continue the Doxy
#Athletes feet between webs of toes
Patient was advised to apply antifungal cream on DC 11/01 but has not
-We will resume antifungal cream(Miconazole nitrate antifungal clear twice daily) in between toe webs-his and son state they will help patient apply the cream as he states he cannot bend over and reach his toes
-I also spoke with patient he can soak his feet in 1 part warm water 1 part apple cider vinegar for 15 minutes 2-3 times a week.
#DM 2
Accu-Cheks with SSI low, HgbA1c was 6.8 on 10/28/2024
-Hold metformin 500 mg at bedtime
Follow glu while on steroids, rapid taper
#HTN�benign
Continue carvedilol 6.25 mg twice daily, valsartan 160 mg p.o. daily
#HLD
-Continue atorvastatin 80 mg at bedtime
#CAD/CABG x 3 vessel 07/2019
-Continue aspirin 81 mg daily, atorvastatin 80 mg at bedtime, Coreg 6.25 mg twice daily
#Prostatitis 2003
DVT prophylaxis
Subcu Lovenox
Full code
Anticipated Discharge: Within 24 hours
Subjective/Interval History
-
Date of Service: November 09, 2024
knee pain reduced, not resolved
Objective Data
-
Labs:
Laboratory Results
11/09/24
05:32
WBC 13.0 H
Hgb 10.3 L
Hct 32.6 L
Plt Count 407 H
Sodium 136
Potassium 5.1
Chloride 98
Carbon Dioxide 27
BUN 16
Creatinine 0.9
Glucose 173 H
Calcium 9.0
Total Bilirubin 0.8
AST 17
ALT 20
Alkaline Phosphatase 163 H
Vital Signs:
Vital Signs
Temp Pulse Resp BP Pulse Ox
97.9 F 77 14 161/91 98
11/09/24 07:00 11/09/24 08:18 11/09/24 07:00 11/09/24 08:18 11/09/24 07:00
I&O
11/08/24 11/09/24 11/10/24
06:59 06:59 06:59
Intake Total 720 / 720 1320 / 1320
Output Total 220 / 220 600 / 600
Balance 500 / 500 720 / 720
Review of Systems
-
History Source: Patient and Coordinated Provider
Constitutional: Denies Fever
EENT: Reports No Symptoms Reported
Respiratory: Reports No Symptoms
Cardiac: Reports No Symptoms
Abdomen/GI: Reports No Symptoms
Musculoskeletal: Reports Joint Pain (left knee pain)
Physical Exam
-
General: Well Developed, Well Nourished and No Apparent Distress
HEENT: Normocephalic, Atraumatic and Moist Mucous Membranes
Respiratory: Clear to Auscultation; Negative Wheezes, Rales or Rhonchi
Cardiac: Regular Rhythm and S1/S2
GI: Soft, Nontender and Nondistended
Musculoskeletal: No Clubbing, No Cyanosis, No Edema and Other (left knee warmth has decreased, swelling decreased post drainage in ER of 60 ml, redness resolved)
Skin: Rash (no evidence of cellulitis)
[2024-11-09 12:07] LABS: Glucose - Point of Care 204 mg/dl (70-99)
[2024-11-09 15:45] VITALS: BP 157/80
[2024-11-09 16:43] LABS: Glucose - Point of Care 254 mg/dl (70-99)
[2024-11-09] MEDS: NOVOLOG FLEXPEN-LOW RESISTANCE 3 UNITS SC (17:09)
[2024-11-09 21:27] LABS: Glucose - Point of Care 209 mg/dl (70-99)
[2024-11-09 21:30] VITALS: BP 165/93
[2024-11-09] MEDS: LIPITOR 80 MG PO (21:35)
[2024-11-10 07:00] VITALS: BP 160/93
[2024-11-10 07:00] LABS: % Basophils 0.3 % (0-2); % Eosinophils 0.1 % (0-6); % Immature Granulocytes 0.6 % (0-0.5); % Lymphocytes 20.5 % (20.5-51.1); % Monocytes 8.1 % (1.7-9.3); % Neutrophils 70.4 % (42.2-75.2); Absolute Basophils 0.1 10^3/uL (0-0.2); Absolute Immature Granulocytes 0.1 10^3/uL (0-0.05); Absolute Lymphocytes 3.2 10^3/uL (1.2-3.4); Absolute Monocytes 1.3 10^3/uL (0.1-0.6); Absolute Neutrophils 11.1 10^3/uL (1.4-6.5); Hematocrit 31.1 % (39.0-52.0); Mean Corp Hgb Conc. 32.2 g/dL (33.0-37.0); Mean Corpuscular Hgb 25.4 pg (27.0-31.0); Mean Corpuscular Volume 79.1 fL (80.0-94.0); Nucleated Red Blood Cells % 0 % (-); Platelet Count 480 10^3/uL (130-400); Red Blood Cell Count 3.93 10^6/uL (4.70-6.10); Red Cell Dist. Width 13.4 % (11.5-14.5); White Blood Cell Count 15.7 10^3/uL (4.8-10.8)
[2024-11-10 07:26] LABS: ALT (SGPT) 20 U/L (0-50); AST (SGOT) 18 U/L (17-59); Albumin 3.9 g/dl (3.5-5.0); Alkaline Phosphatase 139 U/L (38-126); Blood Urea Nitrogen 24 mg/dl (9-20); Calcium 9.3 mg/dl (8.4-10.2); Carbon Dioxide 24 mmol/L (22-30); Chloride 100 mmol/L (98-107); Estimated Creatinine Clearance 71 ml/min; Glucose 140 mg/dl (70-99); Potassium 4.2 mmol/L (3.5-5.1); Sodium 138 mmol/L (135-145); Total Bilirubin 0.7 mg/dl (0.2-1.3); Total Protein 7.1 g/dl (6.3-8.2); eGFR > 60.00
[2024-11-10 07:43] LABS: Glucose - Point of Care 131 mg/dl (70-99)
[2024-11-10] MEDS: NOVOLOG FLEXPEN-LOW RESISTANCE SC (09:22)
[2024-11-10] MEDS: COREG 6.25 MG PO (09:42)
[2024-11-10] MEDS: DELTASONE 30 MG PO (09:43)
[2024-11-10] MEDS: DIOVAN 160 MG PO (09:43)
[2024-11-10] MEDS: ASPIR LOW (ENTERIC COATED) 81 MG PO (09:43)
[2024-11-10] MEDS: COLCHICINE 0.6 MG PO (09:43)
[2024-11-10] MEDS: ANTIFUNGAL CLEAR 1 APPLIC TOPICAL (09:44)
--- NOTE | 2024-11-10 11:01 | W.PN.HOSP.TC ---
Today's Communication/Plan
-
dc to home
Assessment / Plan
Assessment / Plan
#Acute left knee effusion secondary to GOUT flare with acute on chronic left leg cellulitis(improving)
This is gout and was started on Colchicine 0.6 bid. Pt very anxious for this to resolve and thus added short course of steroids, as of today, fully resolved
would prefer not to dc on steroids, pt is prediabetic and steroids raised glu. With dramatic improvement, believe we can stop steroids
#Hx Gout left great toe many years ago
# leukocytosis WBC 14.5 -->13.0-->13.0-->15.7
rise in WBC most likely related to steroids
Bedside arthrocentesis showing crystals -monosodium urate
-Consulted Infectious disease
input appreciated. Doxy being used to tx cellulitis has been stopped
-Follow arthrocentesis fluid
Many WBC, Gm stain neg for Bact
-Dr. Barriga aware only needs consult if KNEE fluid culture is positive
-Tylenol mild pain, Percocet 1 tab moderate/severe pain, bowel regimen. Has not used in 24 hrs, will dc
-Will continue colchicine
-IV vancomycin, IV Rocephin stopped
-PT/OT/case management consult
#Recent cellulitis
completed hospital course and dc on 11/01 on Amox, changed as outpt to Doxy when was not improving and has improved on Doxy. Dr. Mckenzie stopped the Doxy
#Athletes feet between webs of toes
follow this up post dc, hopefully with stopping abx, this will fully resolve
#DM 2
Accu-Cheks with SSI low, HgbA1c was 6.8 on 10/28/2024
-resume metformin 500 mg at bedtime post dc
#HTN�benign
Continue carvedilol 6.25 mg twice daily, valsartan 160 mg p.o. daily
#HLD
-Continue atorvastatin 80 mg at bedtime
#CAD/CABG x 3 vessel 07/2019
-Continue aspirin 81 mg daily, atorvastatin 80 mg at bedtime, Coreg 6.25 mg twice daily
#Prostatitis 2003
DVT prophylaxis
Subcu Lovenox
dc to home
see dictated note
Full code
Anticipated Discharge: Today
Subjective/Interval History
-
Date of Service: November 10, 2024
Knee feels much better today, pain essentially resolved
Objective Data
-
Labs:
Laboratory Results
11/10/24
06:37
WBC 15.7 H
Hgb 10.0 L
Hct 31.1 L
Plt Count 480 H
Sodium 138
Potassium 4.2
Chloride 100
Carbon Dioxide 24
BUN 24 H
Creatinine 1.0
Glucose 140 H
Calcium 9.3
Total Bilirubin 0.7
AST 18
ALT 20
Alkaline Phosphatase 139 H
Vital Signs:
Vital Signs
Temp Pulse Resp BP Pulse Ox
98.0 F 76 12 160/93 96
11/10/24 07:00 11/10/24 07:00 11/10/24 07:00 11/10/24 07:00 11/10/24 07:00
I&O
11/09/24 11/10/24 11/11/24
06:59 06:59 06:59
Intake Total 1320 / 1320 1090 / 1090
Output Total 600 / 600
Balance 720 / 720 1090 / 1090
Review of Systems
-
History Source: Patient and Coordinated Provider
Constitutional: Denies Fever
EENT: Reports No Symptoms Reported
Respiratory: Reports No Symptoms
Cardiac: Reports No Symptoms; Denies Chest Pain
Abdomen/GI: Reports No Symptoms
Musculoskeletal: Denies Joint Pain (left knee pain resolved)
Neuro: Reports No Symptoms
Physical Exam
-
General: Well Developed, Well Nourished and No Apparent Distress
HEENT: Normocephalic, Atraumatic and Moist Mucous Membranes
Respiratory: Clear to Auscultation; Negative Wheezes, Rales or Rhonchi
Cardiac: Regular Rhythm and S1/S2
GI: Soft, Nontender and Nondistended
Musculoskeletal: No Clubbing, No Cyanosis, No Edema and Other (left knee warmth has resolved, swelling fully resolved, redness resolved)
Skin: Negative Rash (no evidence of cellulitis)
[2024-11-10 11:30] VITALS: BP 148/92
--- NOTE | 2024-11-10 11:31 | W.DS.TRANS ---
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
-
Discharge Instructions:
Discharge Diagnosis/Procedures Acute gout
Diet Low Cholesterol,Diabetic, Carb Controlled
Activity As tolerated
Driving Restrictions As prior to admission
Bathing Restrictions None
Blood Work CBC, BMP, Iron studies in 1-2 weeks
Others Tests Was noted to have hypochromic, microcytic anemia
(Hgb 10.2 on admission) Would recommend
further work up of this as outpatient
Instructions:
Stand-Alone Forms:
Changes to Home Medications: Yes
Discharge Medications:
DC Medications w/original date entered in [employer]
atorvastatin 40 mg tablet 80 mg PO HS High Cholesterol 10/13/21
metformin 500 mg tablet,extended release 24 hr 500 mg PO HS Diabetes 10/13/21
valsartan 160 mg tablet 160 mg PO DAILY Blood Pressure 10/27/24
aspirin 81 mg tablet,delayed release 81 mg PO DAILY Blood Clot Prevention/Tx 11/07/24
carvedilol 6.25 mg tablet 6.25 mg PO BID Blood Pressure 11/07/24
colchicine 0.6 mg tablet 0.6 mg PO BID #21 tabs 11/10/24
Home Medication Changes
stop Doxycycline
take Colchicine as directed
Pending Results: No
== END 2024-11-10 11:56 | disposition home or self-care (01) ==
LOC: 3 WEST ACU 15:17
PROVIDERS: Clinical Nurse Specialist Family Health; ADMITTING PHYSICIAN Hospitalist; ATTENDING PHYSICIAN Internal Medicine; CONSULT PHYSICIAN Internal Medicine Infectious Disease; EMERGENCY PHYSICIAN Student in an Organized Health Care Education/Training Program; FAMILY PHYSICIAN Family Medicine
DX: M10.9 Gout, unspecified (principal); I25.10 Atherosclerotic heart disease of native coronary artery without angina pectoris; K21.9 Gastro-esophageal reflux disease without esophagitis; E78.00 Pure hypercholesterolemia, unspecified; I10 Essential (primary) hypertension; E11.9 Type 2 diabetes mellitus without complications; M19.072 Primary osteoarthritis, left ankle and foot; D50.9 Iron deficiency anemia, unspecified; B35.3 Tinea pedis; M25.462 Effusion, left knee; Z95.1 Presence of aortocoronary bypass graft; Z82.49 Family history of ischemic heart disease and other diseases of the circulatory system; Z79.82 Long term (current) use of aspirin; Z79.84 Long term (current) use of oral hypoglycemic drugs; Z86.16 Personal history of COVID-19; Z83.49 Family history of other endocrine, nutritional and metabolic diseases; Z83.3 Family history of diabetes mellitus; Z82.3 Family history of stroke
CPT/HCPCS: 20610; 80053; 82962; 84550; 85025; 87015; 87070; 87205; 89051; 89060; 96365; 96366; 96375; 97116; 97162; 97166; 99285; G0378

== ENCOUNTER → 2024-11-15 14:05 | Outpatient (REF) | payer OTHER, SELFPAY | LOC: RAD 14:05 | PROVIDERS: ATTENDING PHYSICIAN Student in an Organized Health Care Education/Training Program; FAMILY PHYSICIAN Family Medicine | DX: R10.9 Unspecified abdominal pain (principal) | CPT/HCPCS: 74177; Q9967 ==

== ENCOUNTER 2024-11-19 05:35 | Emergency (ER) | payer OTHER, SELFPAY ==
[2024-11-19 05:37] VITALS: BP 158/103
--- NOTE | 2024-11-19 06:40 | ED.GENMED ---
History of Present Illness
General
Chief Complaint: Musculo-Skeletal Complaint
Source: patient and records
Exam Limitations: none
Time Seen by Provider: 11/19/24 06:21
Nursing documentation reviewed up to this point in time: agreed with
History of Present Illness
History of Present Illness:
64-year-old male with a past medical history as noted presents to the ER for evaluation of recurrent left knee pain. Patient was admitted in early October for left lower leg redness and swelling was diagnosed with cellulitis and treated with a
course of antibiotics and his symptoms resolved. He subsequently developed swelling and pain in the left knee without redness. He had an arthrocentesis which was equivocal and was admitted on antibiotics pending fluid cultures�presumptive
diagnosis of gout but admitted to rule out septic arthritis. While admitted he was seen by infectious disease, fluid cultures were ultimately negative. He was treated with prednisone during his hospitalization and he says that this caused rapid
improvement; he was also started on colchicine. He says he has maintained colchicine since discharge but he says that he stopped steroids prior to leaving the hospital and has not taken steroids since. Over the past few days he says that his
symptoms have returned�he reports increasing pain and swelling in the knee over the past 3 or 4 days and that today he was having trouble walking due to the pain and swelling and so he came back to the ER. He has not had any fevers or chills. He
denies any trauma. Has not noticed any redness. He denies any other issues today.
Past History
Past History
ED Past Medical History: CAD, GERD, HTN, Hypercholesterolemia, NIDDM (Diet controlled) and Other (Cellulitis)
ED Past Surgical History: Cardiac (Cardiac catheterization 06/19/2019, no stents, CABG x 3 2018)
Social History
Tobacco: Non-smoker
Alcohol: Occasional
Drug: None
Personal: Other ()
Living: alone
Employment: Employed
Family History
Family History: CAD
Review of Systems
Review of Systems
All Other Systems: ROS reviewed and negative except as documented in HPI and ROS
Constitutional: Denies fever or chills
Musculoskeletal: Reports joint pain and joint swelling
Phy Exam
Physical Exam
Physical Exam:
General: Well appearing and non-toxic
HEENT: protecting airway
Neck: appears supple
CV: No evidence of cyanosis
Resp: No accessory muscle use
Abd: Non-distended
Extremities: No deformities; no edema in extremities; on exam of his left knee he has mild joint effusion, no erythema or warmth, he has range of motion to about 90 degrees of flexion, further flexion limited by pain�able to fully extend the left
knee; no effusion, swelling, redness in the right knee and full active range of motion without pain; he has a good strong distal pulses in the left leg
Neuro: Alert
Psych: Normal affect
Skin: Warm, dry, no erythema or warmth
Scores
Heart Failure Risk
Heart Failure Risk Score: Not Applicable
Heart Score for Chest Pain Patients
STEMI patient?: Not applicable
Withdrawal Assessment of Alcohol
Withdrawal Assessment Completed?: Not applicable
Course
Orders/Labs/Results
Orders:
Orders
11/19/24 06:13
CR Knee - Left 4 Or More View* Urgent
Comment:
Reason For Exam: left knee pain and swelling
11/19/24 06:39
Pantoprazole [Protonix] 40 mg PO NOW STA
Prednisone [Deltasone] 40 mg PO NOW STA
Vital Signs
Initial and Last Documented VS:
Initial Vital Signs
Temp Pulse Resp BP Pulse Ox
36.4 C 103 18 158/103 99
11/19/24 05:37 11/19/24 05:37 11/19/24 05:37 11/19/24 05:37 11/19/24 05:37
Last Documented Vital Signs
Temp Pulse Resp BP Pulse Ox
36.4 C 103 18 158/103 99
11/19/24 05:37 11/19/24 05:37 11/19/24 05:37 11/19/24 05:37 11/19/24 05:37
MDM/Problems Addressed
Differential Diagnosis Includes:
Rebound gout flare, osteoarthritis, septic arthritis considered less likely
MDM/Problems Addressed:
64-year-old male with history as documented who was recently admitted and treated for acute left knee gouty arthritis presents for increased swelling and pain in the left knee similar to prior. He had been on steroids which rapidly improved his
symptoms these were tapered before leaving the hospital. He has been maintained on colchicine but over the past few days his symptoms have returned. No trauma. No fevers or chills. Exam as above�at this point he has no fever, no redness or
warmth of the joint and reasonable range of motion all which go against diagnosis of septic arthritis. Suspect that this is a rebound flare of acute gouty arthritis. I did speak to the patient about potentially repeating arthrocentesis more for
therapeutic relief rather than diagnostics�we spoke about the risks and benefits including the potential risk of introducing infection with repeated arthrocentesis. At this point I feel risk of introducing infection outweighs benefit as he only has
a small effusion and he did not have significant symptomatic relief after arthrocentesis previously�patient agrees at this point we will forego repeat arthrocentesis and treat for presumptive rebound gouty flare. He has not yet had an x-ray of the
knee will check this for completeness. Started on steroids once again and we will plan for a prolonged taper over 3 weeks. Will maintain colchicine. Patient is comfortable with this plan.
I did review recent imaging�patient says that he had some recent upper abdominal pain and had a CT scan done which showed duodenitis. Given this finding and the fact that we are starting on steroids once again for gout we will start on PPI as well.
X-ray reviewed by me shows no fracture. Will plan to discharge on a longer steroid taper. Start PPI as above. Follow-up with PCP as an outpatient. Patient comfortable with this plan. We spoke in detail about return precautions including any
fever, redness or any other symptoms of concern. All questions answered.
Chronic conditions affecting care:
Gout
Acute Exacerbation and/or Progression of Chronic Illness:
Acutely hypertensive likely pain related�no indication for emergent antihypertensives
Acute Exacerbation and/or Progression of Chronic Illness: HTN
*Radiology
Radiology exam reviewed: preliminary read by ED provider
*Pulse Oximetry
Patient hypoxic: no
*Critical Care Note
Total Time (30-74mins, 75-104mins- exclusive of procedures): Not Applicable
Data Reviewed
Review of Other/Old Records Reveals: Labs, Records and Testing
Source: patient and records
Further Testing Considered But Not Given:
Considered repeat arthrocentesis as above
ED Attending Note
-
Portions of this chart may have been created with voice recognition software.� Occasional wrong word or��sound alike� substitutions may have occurred due to the inherent limitations of voice recognition software.
Discharge Plan
Departure
Patient Disposition: Home (Routine Discharge)
Date of Disposition: 11/19/24
Time of Disposition: 07:45
Patient with high blood pressure during this ER visit?: Yes
Discharge Problem:
Gouty arthritis of left knee
Instructions: Gout ED, Low-purine diet
Prescriptions:
New
prednisone 10 mg Tablet
See Rx Instructions .ROUTE .COMPLEX Qty: 60 0RF
Rx Instructions:
Take By Mouth:
50 mg daily x4 days, 40 mg daily x4 days,
30 mg daily x4 days, 20 mg daily x4 days,
10 mg daily x4 days
pantoprazole [Protonix] 40 mg tablet,delayed release (DR/EC)
40 mg PO DAILY Qty: 30 0RF
No Action
atorvastatin 40 MG tablet
80 mg PO HS
metformin 500 MG tablet extended release 24 hr
500 mg PO HS
valsartan 160 mg Tablet
160 mg PO DAILY
carvedilol 6.25 MG tablet
6.25 mg PO BID
aspirin 81 MG tablet,delayed release (DR/EC)
81 mg PO DAILY
colchicine 0.6 mg Tablet
0.6 mg PO BID Qty: 21 0RF
Rx Instructions:
bid x 7 days, then qday for next 7 days, then stop
Referrals:
Marcelino Jackson, DO [Family Provider] - Follow up in 5-7 days
Activity Restrictions/Additional Instructions:
Thank you for visiting the Emergency Department at [facility].
1. Please schedule a follow up appointment as directed. Call first thing tomorrow morning to make an appointment.
2. If indicated, please take your medications as instructed and indicated on discharge paperwork.
3. If any of your symptoms do not improve, or persist, or become more severe within 6-12 hours, please return to the emergency department for further care.
4. Please return to the emergency department if you develop a headache, neck pain/stiffness, fever greater than 100.4F, chest pain, shortness of breath, persistent nausea, vomiting, slurred speech, difficulty walking, numbness/tingling, weakness,
signs of infection or any other symptoms that are worrisome to you.
Please call [phone] if you have any questions.
Interventions
Interventions:
*Risk Screen - Suicide Last Done: 11/19/24 05:37
*General Assessment Last Done: 11/19/24 05:37
*Neglect/Abuse Screening Last Done: 11/19/24 05:37
ED- Fall Risk Assessment Last Done: 11/19/24 06:50
*ED COVID-19 Vaccine History Last Done: 11/19/24 05:37
ED-Musculoskeletal Assessment Last Done: 11/19/24 06:50
Discharge Date and Time
Print Language: YI
[2024-11-19] MEDS: DELTASONE 40 MG PO (07:13)
[2024-11-19] MEDS: PROTONIX 40 MG PO (07:13)
[2024-11-19 07:55] VITALS: BP 155/98
== END 2024-11-19 08:14 | disposition home or self-care (01) ==
LOC: EMR 05:35
PROVIDERS: EMERGENCY PHYSICIAN Emergency Medicine; FAMILY PHYSICIAN Family Medicine
DX: M25.562 Pain in left knee (principal); M25.461 Effusion, right knee; M17.12 Unilateral primary osteoarthritis, left knee; M10.9 Gout, unspecified
CPT/HCPCS: 99283; 73564

== ENCOUNTER → 2025-09-10 08:12 | Outpatient (REF) | payer OTHER, SELFPAY | LOC: RCS 08:12 | PROVIDERS: ATTENDING PHYSICIAN Internal Medicine Cardiovascular Disease; FAMILY PHYSICIAN Family Medicine | DX: R06.02 Shortness of breath (principal) | CPT/HCPCS: 93306 ==

== ENCOUNTER → 2025-09-11 07:39 | Outpatient (REF) | payer OTHER, SELFPAY | LOC: HWRCS 07:39 | PROVIDERS: ATTENDING PHYSICIAN Internal Medicine Cardiovascular Disease; FAMILY PHYSICIAN Family Medicine | DX: R07.89 Other chest pain (principal) | CPT/HCPCS: 78452; 93017; A9500 ==